=== PATIENT | female | born 1945 | race Caucasian/White ===

== ENCOUNTER 2020-09-02 09:48 | Outpatient (CLI) | payer MEDICARE, BC, SELFPAY ==
--- NOTE | ~2020-09-02 | MM_ITS ---
EXAMINATION: MM screening mary alice BI w barb HISTORY: Screening mammogram TECHNIQUE: Craniocaudal and mediolateral oblique 3-D tomosynthesis images were obtained and synthetic 2-D images were generated. CAD analysis was submitted and interpreted. COMPARISON: 09/03/2017, 05/12/2016, 05/14/2014 bilateral digital screening mammogram examinations BREAST PARENCHYMAL COMPOSITION: There are scattered areas of fibroglandular density. FINDINGS: There is no evidence of suspicious mass, calcification, or architectural distortion to sugg est malignancy in either breast. There has been no suspicious interval change. IMPRESSION: 1. No mammographic evidence of malignancy. 2. Recommend routine screening mammography in one year. BI-RADS Category 1: Negative Reviewed, dictated and finalized at location A. 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
== END 2020-09-02 09:49 | disposition home or self-care (01) ==
LOC: ANHIMG 09:54
PROVIDERS: PCP Family Medicine; Visit Provider Obstetrics & Gynecology
DX: Z12.31 Encounter for screening mammogram for malignant neoplasm of breast (principal)
CPT/HCPCS: 77063; 77067

== ENCOUNTER → 2022-11-15 10:42 | Outpatient (CLI) | payer MEDICARE, BC, SELFPAY ==
--- NOTE | ~2022-11-15 | MM_ITS ---
EXAMINATION: MM screening [facility] BI w barb HISTORY: Screening mammogram TECHNIQUE: Craniocaudal and mediolateral oblique 3-D tomosynthesis images were obtained and synthetic 2-D images were generated. CAD analysis was submitted and interpreted. COMPARISON: 09/02/2020, 09/03/2017, 05/02/2016 BREAST PARENCHYMAL COMPOSITION: There are scattered areas of fibroglandular density. FINDINGS: No suspicious mass, calcification, or architectural distortion are identified in either remigio ast to suggest malignancy. There has been no suspicious interval change. IMPRESSION: 1. No mammographic evidence of malignancy. 2. Recommend routine screening mammography in one year. BI-RADS Category 1: Negative Reviewed, dictated and finalized at location A.
== END ==
PROVIDERS: PCP Family Medicine; Visit Provider Nurse Practitioner Obstetrics & Gynecology
DX: Z12.31 Encounter for screening mammogram for malignant neoplasm of breast (principal)
CPT/HCPCS: 77063; 77067

== ENCOUNTER 2023-09-28 07:32 | Outpatient (CLI) | payer MEDICARE, BC, SELFPAY ==
[2023-09-28 09:39] LABS: Anion Gap 2 mmol/L (4-12); Blood Urea Nitrogen 16 mg/dL (7-17); Calcium 9.4 mg/dL (8.4-10.2); Carbon Dioxide 30 mmol/L (22-30); Chloride 106 mmol/L (98-107); Estimated Glomerular Filt Rate > 60; Glucose 108 mg/dL (65-110); Sodium 138 mmol/L (137-145)
[2023-10-01 16:09] LABS: Cholesterol 159 mg/dL (0-200); HDL Direct 64 mg/dL; Triglycerides 93 mg/dL (<150)
[2023-10-01 16:16] LABS: LDL Cholesterol Direct 70 mg/dL
== END 2023-09-28 07:33 | disposition home or self-care (01) ==
PROVIDERS: PCP Family Medicine; Visit Provider Nurse Practitioner Family
DX: Z13.1 Encounter for screening for diabetes mellitus (principal); Z13.220 Encounter for screening for lipoid disorders; Z13.29 Encounter for screening for other suspected endocrine disorder
CPT/HCPCS: 36415; 80048; 80061; 84443

== ENCOUNTER 2023-10-12 09:15 | Outpatient (CLI) | payer MEDICARE, BC, SELFPAY ==
--- NOTE | ~2023-10-12 | US_ITS ---
US abdomen complete EXAMINATION: US Abdomen Complete INDICATION: Abdominal pain PROCEDURE: Realtime High Resolution abdomen ultrasound. COMPARISON: No prior studies for comparison FINDINGS: Gallbladder within normal limits. No gallstones, pericholecystic fluid, gallbladder wall t hickening or biliary dilatation. Common bile duct measures 3 mm. Liver echotexture within normal limits without focal mass. Pancreas within normal limits. Pancreati c tail is obscured by bowel gas. Spleen measures 9.8 cm in length. There is a focal hyperechoic mass of the spleen measuring 1.4 cm. Renal echotexture is within normal limits bilaterally without hydrone phrosis, contour deforming mass or renal stone. Right kidney measures 8.6 cm. Left kidney measures 9. 6 cm. Visualized aspects of the aorta and IVC are within normal limits. Portal vein is patent. No sonograph ic Hernandez's sign indicated by the technologist. IMPRESSION: 1: Focal hyperechoic 1.4 cm splenic mass, most likely benign. Consider follow-up ultrasound in 6 danelle hs to assess stability.. Reviewed, dictated and finalized at location B. IMPRESSION: 1: Focal hyperechoic 1.4 cm splenic mass, most likely benign. Consider follow-u p ultrasound in 6 months to assess stability..
== END 2023-10-12 09:16 ==
LOC: MICIMG 09:16
PROVIDERS: PCP Nurse Practitioner Family; Visit Provider Nurse Practitioner Family
DX: R16.1 Splenomegaly, not elsewhere classified (principal)
CPT/HCPCS: 76700

== ENCOUNTER 2023-10-25 12:26 | Outpatient (CLI) | payer MEDICARE, BC, SELFPAY ==
--- NOTE | ~2023-10-25 | MR_ITS ---
EXAMINATION: MR abdomen wo/w con DATE: 10/25/2023 13:30 INDICATION: Splenic mass. TECHNIQUE: Magnetic resonance imaging (MRI) of the abdomen was performed without and with 12 mL Multi Delia intravenous contrast. COMPARISON: Abdomen ultrasound 10/12/2023, chest CT 08/10/11 FINDINGS: The liver, gallbladder, pancreas, and adrenal glands are normal. There are cysts in the kidneys measu ring up to 6 mm on the right. There is a 13 mm mass in the spleen with delayed hyperenhancement. Ther e are no dilated loops of bowel. IMPRESSION: 1. 13 mm splenic mass with delayed hyperenhancement, most likely a hemangioma or hamartoma. Reviewed, dictated and finalized at location E. IMPRESSION: 1. 13 mm splenic mass with delayed hyperenhancement, most likely a hemangioma o r hamartoma.
== END 2023-10-25 12:27 | disposition home or self-care (01) ==
LOC: ANHIMG 12:28
PROVIDERS: PCP Nurse Practitioner Family; Visit Provider Nurse Practitioner Family
DX: R16.1 Splenomegaly, not elsewhere classified (principal)
CPT/HCPCS: 74183; A9577

== ENCOUNTER 2024-03-07 12:07 | Outpatient (CLI) | payer MEDICARE, BC, SELFPAY ==
--- NOTE | ~2024-03-07 | MM_ITS ---
EXAMINATION: MM screening mary alice BI w barb HISTORY: Screening mammogram TECHNIQUE: Craniocaudal and mediolateral oblique 3-D tomosynthesis images were obtained and synthetic 2-D images were generated. CAD analysis was submitted and interpreted. COMPARISON: 11/15/2022, 09/02/2020, 09/03/2017 BREAST PARENCHYMAL COMPOSITION:Dense: The breasts are heterogeneously dense, which may obscure small masses. FINDINGS: No suspicious mass, calcification, or architectural distortion are identified in either remigio ast to suggest malignancy. There has been no suspicious interval change. IMPRESSION: No mammographic evidence of malignancy. Recommend routine screening mammography in one year. BI-RADS Category 1: Negative Reviewed, dictated and finalized at location .
--- NOTE | ~2024-03-07 | DEXA_ITS ---
Bone Density Report Name: KARLIE MCGILL Age: 78 Sex: Female Ethnicity: White Date of : 1945 Indication: postmenopausal; screening for osteoporosis; parental hip fracture; hysterectomy; Referring Provider: KARISHMA XIONG Study: Bone densitometry was performed. Exam Date: March 07, 2024 Accession number: [id number] Bone Density: Region BMD T-score Z-score Classification AP Spine(L1-L4) 0.876 -1.6 1.1 Osteopenia Femoral Neck (Left) 0.704 -1.3 1.0 Osteopenia Total Hip (Left) 0.844 -0.8 1.2 Normal Femoral Neck (Right) 0.704 -1.3 1.0 Osteopenia Total Hip (Right) 0.843 -0.8 1.2 Normal Total Hip Mean 0.843 -0.8 1.2 Normal World Health Organization criteria for BMD impression classify patients as: Normal (T-score at or above -1.0), Osteopenia (T-score between -1.0 and -2.5), or Osteoporosis (T-score at or below -2.5). 10-year Fracture Risk(1): Major Osteoporotic Fracture 22% Hip Fracture 11% Reported Risk Factors: [place] (), Neck BMD=0.704, BMI=24.7, parental fracture (1) FRAX(R) Version 3.08. Fracture probability calculated for an untreated patient. Fracture probability may be lower if the patient has received treatment. Clinical Information Provided by Patient: Parent has had a hip fracture Has the following medical conditions: Hysterectomy Patient maximum height was 63 Menopause Age: 45 Onset of menses at age 11 Number of children 0 Impression: The patient has low bone mass, based on the Total Spine T-score. The patient has an estimated ten-year risk of hip fracture of 11% and an estimated ten-year risk of major fracture of 22%, based on the WHO FRAX algorithm. The patient has risk factors, including: parental hip fracture. Discussion: BONE DENSITY IS LOW AT ONE OR MORE SKELETAL SITES. THE PATIENT'S BMD AND CLINICAL RISK FACTORS CONTRIBUTE TO THIS PATIENT'S HIGH RISK OF FRACTURE. This patient's lowest T-score is low at one or more skeletal sites. It meets the World Health Organization's (WHO) criteria for ?low bone mass? (T-score between -1.0 and -2.5). The patient's 10-year risk of hip fracture and 10 year risk of a major osteoporotic fracture as calculated by FRAX exceeds the threshold where pharmacological therapy is recommended by the National Osteoporosis Foundation (NOF). However, all treatment decisions require clinical judgment and consideration of individual patient factors, including patient preferences, comorbidities, previous drug use, risk factors not captured in the FRAX model (e.g., frailty, falls, vitamin D deficiency, increased bone turnover, interval significant decline in bone density) and possible under or overestimation of fracture risk by FRAX. The patient should follow a healthful lifestyle (good nutrition with adequate calcium a
== END 2024-03-07 12:08 | disposition home or self-care (01) ==
LOC: ANHIMG 12:10
PROVIDERS: PCP Nurse Practitioner Family; Visit Provider Nurse Practitioner Family
DX: Z12.31 Encounter for screening mammogram for malignant neoplasm of breast (principal); M85.89 Other specified disorders of bone density and structure, multiple sites; Z78.0 Asymptomatic menopausal state
CPT/HCPCS: 77063; 77067; 77080

== ENCOUNTER 2024-09-26 08:30 | Outpatient (CLI) | payer MEDICARE, BC, SELFPAY ==
[2024-09-26 09:13] LABS: Hematocrit 41.8 % (37.0-47.0); Hemoglobin 13.5 g/dL (12.0-15.0); Mean Corpuscular HGB Conc 32.3 g/dl (32-36); Mean Corpuscular Hemoglobin 29.6 pg (26-34); Mean Corpuscular Volume 91.7 fl (80-100); Mean Platelet Volume 10.7 fl (7.4-10.4); Platelet Count Result 225 k/mm3 (150-375); Red Blood Count 4.56 M/mm3 (4.2-5.4); Red Cell Distribution Width 13.5 % (11.5-14.5); White Blood Count 6.7 K/mm3 (4.5-10.0)
[2024-09-26 09:27] LABS: Alanine Aminotransferase 15 U/L (6-35); Albumin Level 4.2 g/dL (3.5-5.1); Alkaline Phosphatase 59 U/L (38-126); Anion Gap 6 mmol/L (4-12); Aspartate Amino Transferase 26 U/L (14-36); Bilirubin,Total 0.9 mg/dL (0.2-1.3); Blood Urea Nitrogen 17 mg/dL (7-17); Calcium 9.4 mg/dL (8.4-10.2); Carbon Dioxide 29 mmol/L (22-30); Chloride 104 mmol/L (98-107); Estimated Glomerular Filt Rate 59; Glucose 105 mg/dL (65-110); Potassium 3.9 mmol/L (3.4-5.0); Sodium 139 mmol/L (137-145)
== END 2024-09-26 08:31 | disposition home or self-care (01) ==
PROVIDERS: PCP Family Medicine; Visit Provider Nurse Practitioner Family
DX: R10.9 Unspecified abdominal pain (principal); E55.9 Vitamin D deficiency, unspecified; E50.9 Vitamin A deficiency, unspecified; Z13.220 Encounter for screening for lipoid disorders
CPT/HCPCS: 36415; 80053; 82306; 85027

== ENCOUNTER 2024-10-03 08:13 | Outpatient (CLI) | payer MEDICARE, BC, SELFPAY ==
--- NOTE | ~2024-10-03 | US_ITS ---
Abdominal Sonogram: Real-time sonographic imaging of the abdomen was performed. Clinical History: Splenomegaly COMPARISON: MR dated 10/25/2023, ultrasound dated 10/12/2023 Findings: The liver appears normal with no evidence of mass lesion or bile duct dilatation. Main por porfirio vein demonstrates normal direction of flow. The spleen is normal in size. Suggestion of a 1.4 cm minimally hyperechoic mass in the spleen. The gallbladder is well distended, and appears normal with no evidence of gallstone or wall thickening. The common bile duct measures 3 mm. The visualized awan creas, aorta, and IVC are unremarkable. The right kidney measures 8.7 cm in length and the left kidn ey measures 8.1 cm. There is no hydronephrosis or renal calculus. Impression: Stable 1.4 cm splenic mass. Reviewed, dictated and finalized at [facility]. Impression: Stable 1.4 cm splenic mass.
== END 2024-10-03 08:14 | disposition home or self-care (01) ==
LOC: MICIMG 08:13
PROVIDERS: PCP Family Medicine; Visit Provider Nurse Practitioner Family
DX: D73.9 Disease of spleen, unspecified (principal)
CPT/HCPCS: 76700

== ENCOUNTER 2024-12-25 12:41 | Outpatient (CLI) | payer MEDICARE, BC, SELFPAY ==
--- OUTSIDE RECORDS SUMMARY | 2024-12-25 12:46 | XMS_ITS | Data Portability ---
Author Organization [facility] Address [address] [place] [address] Care Team Providers Care Margin Clerk Name Role Phone KRISTY POP Primary Care Provider [phone] Assessment Encounter Date Assessment Date Assessment LastModified by Organization Details LastModified Time 07/11/2021 07/11/2021 STD testing not done per patient preference Rx:diflucan also estrace cream- discussed atrophy. suspect this is some of her sx or at least making her more likely to get yeast infections. Call office if symptoms worsening or not improving with treatment Follow up for WWE Not available 07/11/2021 13:15:20 05/23/2022 05/23/2022 CBE exam & Mammo order provided this visit. [email or web address] Not available 05/23/2022 11:03:45 Plan of Treatment Reminders Order Date Submit Date Provider Last Modified By Organization Details Last Modified Time Details Appointments MED CHECK 2024 09:15A NIKI Vila Not available Not available Not available Lab unlisted lab - women's health swab, MUKUND 2024 025 [facility] (Lab), [address], [place], [address], 09/26/2024 12:17:29 Referral None recorded. Procedures None recorded. Surgeries None recorded. Imaging None recorded. Medication Orders estradiol 0.01% (0.1 mg/gram) vaginal cream 2024 025 [facility], [address] [place], [address], 09/25/2024 15:58:36 Imvexxy Maintenan ce Pack 4 mcg vaginal insert 2021 [facility], [address] [place] [address], [id number], 09/25/2024 15:27:41 Estrace 0.01% (0.1 mg/gram) vaginal cream 2021 HARJIT [facility], [address] [place] [address], [id number], 04/14/2022 11:40:30 Diflucan 150 mg tablet 2021 [facility], [address] [place] [address], [id number], 04/14/2022 11:40:33 Patient TargetsNo targets recorded. Patient InstructionsNo instructions recorded. Reason for Referral None Reported. Results Created Date Observation Date Name Description Value Unit Range Abnormal Flag Note LastModifiedBy Organization Detail LastModifiedTime 09/26/1909/25/2024 WOMEN 'S HEALT H SWAB, MUKUND bacterial vaginosis (bv), tma Positi ve negati ve abnormal This test detec ts ribos omal RNA from bacte marti assoc iated with bacte rial vagin osis (BV), inclu ding Lacto bacil demarco (L. gasse ri, L. crisp atus and L. jense zunilda), Gardn erell a vagin belia, and Atopo bium vagin ae by Trans cript ion-M ediat ed Ampli ficat ion (TMA) . A singl e quali tativ e resul t is repor prabhu based on instr ument softw are to deter mine BV posit rachana or negat rachana statu s. Not Available [facility] (Lab) [address], [place], [address], 09/26/2024 12:17:29 09/26/1909/25/2024 WOMEN 'S HEALT H SWAB, MUKUND kurtis species, tma Positi ve negati ve abnormal Not Available [facility] (Lab) [address] [place], [address], 09/26/2024 12:17:29 09/26/19 25 09/25/2024 WOMEN 'S HEALT H SWAB, MUKUND kurtis glabrata, tma Negati ve negati ve Not Available [facility] (Lab) [address] [place], [address], 09/26/2024 12:17:29 09/26/19 25 09/25/2024 WOMEN 'S HEALT H SWAB, MUKUND trichomonas vaginalis, tma Negati ve negati ve This assay tests for and diffe renti ates minnawe en Lorelei da glabr patricia, the Lorelei da speci es group (C. albic ans, C. tropi calis , C. parap demetrius is, C. dubli niens is), and Trich omona s vagin belia by Trans cript ion-M ediat ed Ampli ficat ion (TMA) . Not Available [facility] (Lab) [address], [place], [address], 09/26/2024 12:17:29 Result Notes None recorded. Problems Name Problem SNOMED Code Status Onset Date Resolution Date Notes Provider Name and Address Organization Details Recorded Time Speciali zed medical examinat ion Completed 201307/11/2021 Gynecolo gical Examinat ion;Chaz rded Elsewher e: No Locat ion: [facility] S ource: [employer] Distributor semaj: N Practi ce ID: [id number] Jordan lable Time: 10:00:00 AM Florecita Fan MD [address], [place], [address], [place] [facility] 2 09:39:44 Screenin g for malignan t neoplasm of rectum Completed 201107/11/2021 Screenin g for malignan t neoplasm s of the rectum;R ecorded Elsewher e: No Locat ion: [facility] S ource: [employer] Distributor semaj: N Practi ce ID: [id number] Jordan lable Time: 01:30:00 PM Florecita Fan MD [address], [place], [address], [facility] [address] 09:39:[address] Concept Completed 201507/11/2021 Encntr for general adult medical exam w/o abnormal findings ;Recorde d Elsewher e: No Locat ion: Angie bland [facility] S ource: [employer] Distributor semaj: N Ninati ce ID: [id number] Jordan lable Time: 09:30:00 AM Florecita Fan MD [address], [place], [address], [facility] 2 09:39:39 Screenin g for malignan t neoplasm of cervix Completed 201107/11/2021 Screenin g for malignan t neoplasm s of the cervix;R ecorded Elsewher e: No Locat ion: Angie bland [facility] S ource: [employer] Distributor semaj: N Mauro ce ID: [id number] Jordan lable Time: 01:30:00 PM Florecita Fan MD [address], [place], [address], [facility] 2 09:39:34 Acute vaginiti s 83895166 Completed 201907/11/2021 Acute vaginiti s;Record ed Elsewher e: No Locat ion: Angie bland [facility] S ource: [employer] semaj: N Mauro ce ID: [id number] Jordan lable Time: 10:00:00 AM Florecita Fan MD [address], [place], [address], [facility] 2 09:39:13 Leukocyt osis [id number] Completed 201307/11/2021 LEUKOCYT OSIS NOS;Chaz rded Elsewher e: No Locat ion: Angie bland [facility] S ource: [employer] semaj: N Ninati ce ID: [id number] Jordan lable Time: 10:00:[address] AM MD [address], [place], [address], [facility] 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 2 09:39:31 Disorder of pelvic region of trunk Completed 201607/11/2021 Cystocel e;Record ed Elsewher e: No Locat ion: [facility] S ource: [employer]ributor semaj: N Ninati ce ID: [id number] Jordan lable Time: 11:00:00 AM MD [address], [place], [address], [facility] [address] 09:39:[address] Concept Completed 201507/11/2021 Well woman check w/o abnormal finding; Recorded Elsewher e: No Locat ion: [facility] S ource: [employer] Distributor semaj: N Ninati ce ID: [id number] Jordan lable Time: 09:30:00 AM Florecita Fan MD [address], [place], [address], [facility] 2 09:39:41 Adult health examinat ion Completed 201307/11/2021 ROUTINE MEDICAL EXAM;Rec orded Elsewher e: No Locat ion: [facility] S ource: [employer] semaj: N Ninati ce ID: [id number] Jordan lable Time: 10:00:00 AM MD [address], [place], [address], [facility] 2 09:39:16 Microsco pic hematuri a [id number] Completed 201107/11/2021 MICROSCO PIC HEMATURI A;Record ed Elsewher e: No Locat ion: Swathijace baldo [facility] S ource: [employer] Distributor semaj: N Practi ce ID: [id number] Jordan lable Time: 01:30:00 PM Florecita Fan MD [address], [place], [address], [facility] 2 09:39:22 Problem Notes None recorded. Procedures Surgical History Date Name Laterality Status Provider Name and Address Organization Details Recorded Time 02/24/20 24 Date of Last Mammogram completed Bita Coffey [facility] 09/25/2024 15:29:43 04/27/20 16 Date of Last Pap Smear completed [facility] 07/11/2021 09:17:25 06/25/19 12 total knee replacement completed [facility] 07/11/2021 09:19:08 06/25/19 07 total knee replacement completed [facility] 07/11/2021 09:18:52 06/25/19 06 colonoscopy completed [facility] 07/11/2021 09:18:33 Total Hysterectomy completed [facility] 07/11/2021 09:35:52 oophorectomy completed NIKI Mcallister [address], [place], [address], [facility] 09/26/2024 09:33:32 Imaging Results None recorded. Procedure Notes None recorded. Medical Equipment None Reported. Allergies No known drug allergies Medications Name Sig Start Date Stop Date Status Note LastModified by Organization Details LastModified Time amoxicill in 500 mg capsule 04/14 completed Not Available Not Available Not Available latanopro st 0.005 % eye drops active Not Available Not Available Not Available fluconazo le 150 mg tablet Take 1 tablet by oral route. 2024 active Not Available Not Available Not Avai lable metronida zole 0.75 % (37.5 mg/5 gram) vaginal gel insert 1 applicat orful by vaginal route every day at bedtime for 5 nights 2024 active Not Available Not Available Not Avai lable brimonidi ne 0.2 % eye drops active Not Available Not Available No t Available Glucosami ne 500 mg tablet 04/16 completed Prescrib ed Elsewher e: Yes Loca tion: Angie bland [facility] odify By: cezar solis DateTime : 04/12/20 12 12:55:04 PM Not Available Not Available Not Available dorzolami de 22.3 mg-timolo l 6.8 mg/mL eye drops 05/23 completed Not Available Not Available Not Available estradiol 0.01% (0.1 mg/gram) vaginal cream Apply 1g vaginall y at bedtime twice per week 2024 active Not Available Not Available Not Avai lable Premarin 0.625 mg/gram vaginal cream insert by vaginal route every day cyclical ly, 3 weeks on and 1 week off 04/16 completed Prescrib ed Elsewher e: Yes Loca tion: Angie bland [facility] odify By: cezar solis DateTime : 04/12/20 12 12:55:04 PM Not Available Not Available Not Available Calcio Lb 500 mg tablet 04/16 completed Prescrib ed Elsewher e: Yes Loca tion: Angie bland [facility] odify By: cezar solis DateTime : 04/12/20 12 12:55:04 PM Not Available Not Available Not Available Eye Drops (with povidone) 0.05 %-0.1 %-1 %-1 % 05/23 completed Prescrib ed Elsewher e: Yes Loca tion: Angie [facility] odify By: cezar solis DateTime : 04/12/20 12 12:55:04 PM Not Available Not Available Not Available Imvexxy Maintenan ce Pack 4 mcg vaginal insert Use one imvexxy supposit ory topicall y around introitu s/inner vulva bilatera lly twice a week until return to office in 4wks. 09/25 completed Lot#: [id number] , Exp -2 3 Not Available Not Available Not Available Vitals Date Recorded Body height Body mass index (BMI) Body weight Systolic And Diastolic Provider Name and Address Organization Details Last Updated DateTime 07/11/2021 160.02 cm 26.9 kg/m2 27604.04 g 115/74 mm[Hg] Latrice Scott [facility] 07/11/2021 09:35:32 Date Recorded Body height Body mass index (BMI) Body weight Systolic And Diastolic Provider Name and Address Organization Details Last Updated DateTime 09/25/2024 160.02 cm 24.8 kg/m2 72889.93 g 149/82 mm[Hg] Bita Coffey [facility] 09/25/2024 15:27:23 Date Recorded Body height Systolic And Diastolic Provider Name and Address Organization Details Last Updated DateTime 04/14/2022 160.02 cm 120/80 mm[Hg] Alicia Rivera MARIA INES- [address], [place], [address], [facility] 04/14/2022 11:32:59 Date Recorded Body height Body mass index (BMI) Body weight Systolic And Diastolic Provider Name and Address Organization Details Last Updated DateTime 05/23/2022 160.02 cm 24.4 kg/m2 51006.75 g 110/76 mm[Hg] Ashley Melgar [facility] 05/23/2022 10:48:06 Social History Question Answer Notes LastModified by Organizat ion Details LastModified Time Tobacco Smoking Status Never Smoker Ashley Melgar [facility] 05/23/2022 10:48:13 Are You Blind Or Do You Have Difficulty Seeing? No Information not available 04/14/2022 What Is Your Level Of Caffeine Consumption? None Information not available 05/23/2022 Have You Been To An Area Known To Be High Risk For COVID-19? No Information not available 04/14/2022 Are You Deaf Or Do You Have Serious Difficulty Hearing? No Information not available 04/14/2022 What Type Of Diet Are You Following? REGULAR Information not available 04/14/2022 Do You Have Smoke And Carbon Monoxide Detectors In Your Home? Yes Information not available 04/14/2022 Do You Use Sunscreen Routinely? Yes Information not available 04/14/2022 Has Tobacco Cessation Counseling Been Provided? No Information not available 05/23/2022 Do You Have Difficulty Walking Or Climbing Stairs? No Information not available 05/23/2022 Sex: Unknown Functional Status Question Answer Note LastModified by MysteryDat ion Details LastModified Time Do you use any illicit or recreational drugs? No smcaley Information not available 07/11/2021 Do you or have you ever used any other forms of tobacco or nicotine? No Information not available 05/23/2022 What is your level of alcohol consumption? None Information not available 05/23/2022 Are you able to walk? YESWOREST Information not available 04/14/2022 Are you able to care for yourself? Yes Information n ot available 05/23/2022 Do you have difficulty dressing or bathing? No Information not available 05/23/2022 What is your exercise level? Occasional Information not available 04/14/2022 Mental Status None recorded. Family History Relationship Description Onset Age of this Age Resolved Age Notes LastModified by Organization Details LastModified Time Mother Heart disease Not available 2021 11:42:12 Father Malignant neoplastic disease Not available 2021 11:42:20 Medical History Condition Response Allergies (Food, seasonal, environmental ) N Other Y Breast Cancer N Drug/Latex Allergies/Reactions N Blood Transfusion N Dermatologic Disorders N Lung Disease N Defects or Inherited Disease N Breast Problem N Gestational Diabetes N Hematologic disorders N Anesthesia Complications N History of STI N Deep Vein Thrombosis Y Polycystic ovary syndrome N Anxiety Disorder N Autoimmune disease N Arthritis N Infertility N Polyps N Acid Reflux (GERD) N History of abnormal pap N Cancer N Stroke N Varicosities N Neurologic/Epilepsy N Endometriosis N High Cholesterol N Headaches N Fibromyalgia N Kidney Disease N Heart Problems N Kidney or Bladder Problems N Thyroid Problems N GI Problems N Eating Disorder N Anemia N Art (IVF or FET) N Psychiatric Illness N Ovarian Cancer N Diabetes N Pulmonary (TB, Asthma) N Hepatitis/Liver Disease N No Past Medical History N Eczema N Urinary Tract Infection N Abuse/Domestic Violence N Asthma N Trauma/Violence N Depression/ depression N Heart Disease N Pre-Eclampsia N Hypertension N Osteoporosis N Thrombophilias N Gynecological History Statement/Question Response Abnormal Pap N Date of Last Mammogram 02/24/2024 STIs/STDs N HPV Vaccine N Current Control Method Hysterectom y Date of Last Colonoscopy Sexually Active? N Menses Monthly N Date of DEXA bone scan Date of Last Pap Smear 04/27/2016 Sexual Problems? N LMP Unknown Obstetrics History GPAL:G 1 P 0 0 0 1 Type Value Living 1 Total 1 Past Encounters Encounter ID Performer Location Encounter Start Date Encounter Closed Date Diagnosis/Indication Diagnosis SNOMED-CT Code Diagnosis ICD10 Code Diagnosis Note [id number] Florecita Fan MD [facility] [address] [address] 07/11/2021 09:27:16 07/11/2021 13:34:33 Candidiasis of vulva 9513226 B37.3 Atrophic vaginitis 54849 000 N95.2 [id number] Alicia Rivera [facility] [address],[place] [address] 04/14/2022 11:08:43 04/14/2022 13:13:30 Vulval irritation 045954278 N90.89 Questionab le vulvar atrophy vs Lichen planus.Tod ay we discussed VCG's with daily crisco BID plus Imvexxy topical x 4wks.Will determine this next visit if vulvar bx is necessary as we cannot r/o vulvar lichen planus or other pathologyi ncluding vulvar irritation arising from removal/re insertion of pessary. Will work on removing contact dermatitis irritants & re-evaluat e progress at f/u. Time spent in visit is a total of 15 mins with at least 50% of visit consisting of counseling and review of plan of care. [id number] [facility] [address] [address] 05/23/2022 10:34:31 05/23/2022 11:29:26 Vulval irritation 775194540 N90.89 N90.5 Exam much improvedWe decided to do four additional weeks of topical imvexxy as previously instructed along with daily Crisco use which she will continue after imvexxy has been completed then f/u PRN. Imvexxy samples x 4 provided (Lot#: [id number], Exp 04/24/2023 Time spent in visit is a total of 15 mins with at least 50% of visit consisting of counseling and review of plan of care. [id number] NIKI Mcallister [facility] [address],[facility] [address] 09/25/2024 15:04:19 09/26/2024 10:32:49 Vaginal dryness 81348448 N89.8 doing well with pessary use for management of cystoceled iscussed management options for vaginal drynesswil l restart vaginal estradiol cream, rx sent - r/b/a reviewedve g based moisturize r routine discussedq uestions answeredRT C for f/u in 4 months BP precaution s discussed, encouraged PCP f/u Time spent in visit is a total of 25 mins with at least 50% of visit consisting of counseling and review of plan of care. Cystocele 336316365 N81. 10 Health Concerns Section Related Observation LastModified by Organization Detai ls LastModified Time None Recorded Concern Status LastModified by Organization Details LastModified Time None Recorded Advance Directives Directive None Recorded Payers Insurance Date Sequence Insurance Name Policy Number Policy Gatica Covered Member ID Gatica Member ID Guarantor Name 09/25/2024 1 [place] Wilma Haji [id number] Wilma Haji 09/25/2024 1 [place] Wilma Haji [id number] Wilma Haji 09/25/2024 2 [place] [id number] Wilma Haji [id number] Wilma Raissa Notes Date Note Type Note Provider Name and Address Organization Details Recorded Time 07/11/2021 text/html Pt is a 75yo G1P 1001 here complaining of symptoms of a vaginal infection. Symptoms include itching for 6 weeks since took antibiotic for dental procedure. tried monistat 3 and is somewhat improved. Denies fever, bleeding, urinary sx. hysterectomy and pessary in. Additional concerns: sexually active:n contraception:menopau se Last annual exam:2015? Florecita Fan MD [address], [place], [address], [facility] 07/11/2021 13:15:33 04/14/2022 text/html Here today to f/ u on vulvar irritation/burning/dr mei dunn.Was unable to use to the topical estrace cream due to insurance coverage.Her spouse recently due to illness.Still having same issues. NIKI Swift- [address], [place], [address], [facility] 04/14/2022 12:39:59 05/23/2022 text/html Here today for f /u to vulvar irritation/medication check. NIKI Swift- [address], [place], [address], [facility] 05/23/2022 11:08:18 09/25/2024 text/html 78yopresents wit h c/o vaginal drynessh/o TLH, BSO for non-cancerous indicationshas pessary in for cystocele, takes in and out on her ownvaginal dryness for the past few years, was previously using vaginal estrogen/imvexxy which helped.Not SA neg discharge, odors, itchingmammogram UTD per pt NIKI Mcallister [address], [place], [address], [facility] 09/26/2024 09:37:49 OBGyn Episode Ob Episode Information Episode Created Date Number of Fetuses Patient Bloodtype Patient rh Status Prepregnancy Weight lbs Domestic Partner Domestic Partner Phone Father Name Water Quality Technician Status 07/11/19 22 1 CLOSED Fetus Data First Name Last Name Admitted to NICU Weight (g) Sex Living Outcome Pediatric Complications Fetus ID Race Codes Race Delivery Type M [id number] Emanuel Calculation Initial Emanuel Date Initial Exam Date Initial Exam Provider Initial Ultrasound Date Last Menstrual Period Date Ultra Sound Weeks Gestation 0 Eighteen To Twenty Week Emanuel Update Ultra Sound Date Fundal Height At Umbil Quickening Date Ultra Sound Latest Weeks Gestation Final Emanuel Confirmed By Final Emanuel Confirmed Date Final Emanuel Date Ultra Sound Latest Days Gestation 0 0 Menstrual History Last Menstrual Date Menses Monthly On Bcp Conception Prior Menses Frequency Hcg Plus Date Menarche Onset Age Delivery Information Delivery Date Delivery Type Labor Anesthesia Weeks Gestation Incision Type Labor Labor Length Hrs Delivered By Post Complications Tubal Sterilization Discharge Date Comments 8 Discharge Information Feeding Method Contraceptive Method Maternal HG B and HCT Levels
== END 2024-12-25 12:42 | disposition home or self-care (01) ==
PROVIDERS: PCP Family Medicine; Visit Provider Nurse Practitioner Family
DX: E55.9 Vitamin D deficiency, unspecified (principal)
CPT/HCPCS: 36415; 82306

== ENCOUNTER 2025-01-22 18:46 | Inpatient (IN) | payer MEDICARE, BC, SELFPAY ==
[2025-01-22] VITALS (10 sets, daily range): BP systolic 110–139; BP diastolic 69–97; PULSE 59–66; RESP 15–23; TEMP 36.8; O2SAT 96–100; BMI 24.8
--- NOTE | ~2025-01-22 | XR_ITS ---
CHEST RADIOGRAPH CLINICAL HISTORY: PICC placement . COMPARISON: 01/22/2025 TECHNIQUE: Single portable view of the chest. FINDINGS Interval placement of a left upper extremity PICC line with its tip projecting over the cavoatrial ju nction. The remainder of the cardiomediastinal silhouette is otherwise unremarkable. The lungs are clear. IMPRESSION: No focal infiltrate or effusion. Left upper extremity PICC line in good position and ready for immediate use. Reviewed, dictated and finalized at location A.
--- NOTE | ~2025-01-22 | XR_ITS ---
CHEST RADIOGRAPH CLINICAL HISTORY: CP . COMPARISON: 06/29/2019 TECHNIQUE: Single portable view of the chest. FINDINGS The cardiomediastinal silhouette is unremarkable. Increased interstitial markings are identified bilaterally, findings suggesting mild pulmonary vascul ar congestion. The remainder of the lungs are otherwise clear. Significant gaseous distention of the stomach IMPRESSION: Mild pulmonary vascular congestion, without focal infiltrate or effusion. Reviewed, dictated and finalized at location A.
--- NOTE | 2025-01-22 18:51 | ECG_ITS ---
Test Date: 2025-01-22 18:45:33 Measurements Intervals [place] Rate: 63 P: 73 DE: 178 QRS: 42 QRSD: 101 T: 67 QT: 399 QTc: 411 Interpretive Statements SINUS RHYTHM POSSIBLE RIGHT VENTRICULAR CONDUCTION DELAY ST ELEVATION IN DIFFUSE LEADS- PROBABLY EARLY REPOLARIZATION BORDERLINE ECG No previous ECG available for comparison Electronically Signed On 01-23-2025 06:39:44 CDT by Mahesh Cochran D.O.
[2025-01-22 18:59] LABS: Hematocrit 39.1 % (37.0-47.0); Hemoglobin 12.7 g/dL (12.0-15.0); Immature Granulocyte Percent A 0.4 % (0-0.5); Lymphocytes Absolute Auto 3.73 K/mm3 (0.9-3.2); Mean Corpuscular HGB Conc 32.5 g/dl (32-36); Mean Corpuscular Hemoglobin 29.2 pg (26-34); Mean Corpuscular Volume 89.9 fl (80-100); Nucleated Red Blood Cells Absolute Auto 0.000 K/mm3 (0.0-0.012); Nucleated Red Blood Cells Perc 0.0 % (0.0-0.2); Platelet Count Result 258 k/mm3 (150-375); Red Blood Count 4.35 M/mm3 (4.2-5.4); White Blood Count 8.4 K/mm3 (4.5-10.0)
[2025-01-22 19:11] LABS: INR 1.0; Prothrombin Time 13.7 Seconds (11.1-14.7)
[2025-01-22 19:12] LABS: Partial Thromboplastin Time 26.9 Seconds (22.3-36.8)
--- NOTE | 2025-01-22 19:22 | PM.CNCAR ---
Assessment and Plan Assessment and plan (1) Chest pain: Code(s): R07.9 - Chest pain, unspecified Status: Acute Plan Chest pain with exertion Plan: Trend troponin TTE in am Aspirin 324mg po once, then 81 mg p.o. daily Atorvastatin 40 mg daily Check FLP Heparin drip Keep NPO at midnight for catheterization in the a.m. Risks and benefits discussed wih patient and she is willing to proceed History of Present Illness History of Present Illness Consult date/time: 01/22/25 19:22 Reason For Visit: CP, EKG concerning Narrative: 79-year-old female with no significant past medical history presents with chief complaints of chest pain. Patient was working in her garden this evening when she noticed pressure-like chest pain in the central chest of intensity 8-9/10 without any radiation or associated symptoms. There were no aggravating or relieving factors. She went inside and called EMS when the pain did not resolve. She states that she was given aspirin and 2 sublingual nitro which decreased her pain. Right now her pain is of intensity 3-4/10. She has not had similar pain in the past. No family history of premature CAD. She does currently smoke. She states that she had a cardiac catheterization 1999 for chest pain at which time she was told is no obstructive CAD. No shortness of breath, dizziness, palpitations, lightheadedness, presyncope, syncope, recent weight gain, leg swelling, orthopnea PND. EKG shows sinus rhythm, 1mm concave ST elevation in single lead I, T-wave inversion in lead aVL, no reciprocal ST depressions, early repolarization changes in anterior leads. Review of Systems Review of Systems: Complete review of systems was performed and negative other than those mentioned in the HPI. [facility] Past Medical History Medical History Facial pressure Knee pain Cerumen impaction Otitis externa Surgical History Surgical History History of knee replacement (L) 2006 & (R)2011 Dr. Baird Family History Family History Father Family history of lymphoma Mother Family history of coronary artery disease Social History Social History (Reviewed 04/03/25 @ 07:48 by Ivy Valentine Smoking status: Never smoker Second hand tobacco smoke exposure: Yes Alcohol intake: never Substance use: never Substance use type: does not use Do You Feel Safe in your Home?: Yes Lack of Transportation: No Lack of Food: Never True Current Housing: I Have Housing Concerned About Future Housing: No Difficulty Paying Gas/Electric Bills: No Difficulty Paying for Meds: No Currently Unemployed: No Education: Associate Degree Difficulty w/ Childcare or Family Care: No Gender identity (if verbalized by the patient): Female Spiritual care concerns: No (mandaen) Meds Home Medications and Allergies Home Medications ?Medication ?Instructions ?Recorded ?Confirmed ?Type latanoprost 0.005 % eye drops 1 drp EACH EYE HS 06/29/19 01/22/25 History brimonidine 0.2 % eye drops 1 drp EACH EYE Q12H 11/06/22 01/22/25 History dorzolamide 22.3 mg-timolol 6.8 1 drp ophthalmic (eye) ONCE 11/06/22 01/22/25 History mg/mL eye drops cholecalciferol (vitamin D3) 50 2,000 unit PO DAILY 01/22/25 01/22/25 History mcg (2,000 unit) capsule Allergies Allergy/AdvReac Type Severity Reaction Status Date / Time hydrocodone Allergy Mild Unknown Verified 01/22/25 20:33 propoxyphene Allergy Unknown Hives Verified 01/22/25 20:33 Vital Signs Vital Signs - 24 hr 01/22/25 18:42 01/22/25 18:50 01/22/25 18:50 Pulse Rate 63 65 Respiratory Rate 19 15 Blood Pressure 124/75 124/75 Pulse Oximetry 97 100 100 Oxygen Delivery Room Air Room Air 01/22/25 18:58 Pulse Rate 60 Respiratory Rate Blood Pressure Pulse Oximetry Oxygen Delivery Exam Narrative: General: Alert oriented x3, no acute distress Neck: Supple, no JVD Chest: Bilaterally clear to auscultation, no rales or rhonchi Cardiac: S1, S2 +, regular rate, regular rhythm, no murmurs or rubs Extremities: No lower extremity edema, no skin rash Neurologic: Alert and oriented x3, no focal neurological deficits Results Labs and Meds 01/23/25 03:59 01/23/25 03:59 Lab results: Coagulation 01/22/25 Range/Units 18:53 PT 13.7 (11.1-14.7) Seconds APTT 26.9 (22.3-36.8) Seconds CBC 01/22/25 Range/Units 18:53 WBC 8.4 (4.5-10.0) K/mm3 RBC 4.35 (4.2-5.4) M/mm3 Hgb 12.7 (12.0-15.0) g/dL Hct 39.1 (37.0-47.0) % Plt Count 258 (150-375) k/mm3 Lymph # (Auto) 3.73 H (0.9-3.2) K/mm3 [place] # (Auto) 0.9 H (0.1-0.6) K/mm3 Eos # (Auto) 0.0 (0-0.3) K/mm3 Baso # (Auto) 0.0 (0.0-0.1) K/mm3 Patient Weight 01/22/25 23:59 Weight 66 kg
[2025-01-22 19:24] LABS: Alanine Aminotransferase 15 U/L (6-35); Albumin Level 4.0 g/dL (3.5-5.1); Alkaline Phosphatase 52 U/L (38-126); Anion Gap 6 mmol/L (4-12); Aspartate Amino Transferase 31 U/L (14-36); Bilirubin,Total 0.4 mg/dL (0.2-1.3); Blood Urea Nitrogen 19 mg/dL (7-17); Calcium 9.3 mg/dL (8.4-10.2); Carbon Dioxide 27 mmol/L (22-30); Chloride 102 mmol/L (98-107); Cholesterol 166 mg/dL (0-200); Estimated CRCL calculation 31 ml/min; Estimated Glomerular Filt Rate 50; Glucose 114 mg/dL (65-110); HDL Direct 60 mg/dL; Potassium 3.4 mmol/L (3.4-5.0); Sodium 135 mmol/L (137-145); Total Protein 8.1 g/dL (6.3-8.2); Triglycerides 270 mg/dL (<150)
[2025-01-22] MEDS: HEPARIN SOD/D5W 100 UNITS/ML 25,000 UNITS/250 ML BAG 7 UNITS IV CONT (19:32)
--- NOTE | 2025-01-22 19:33 | ECG_ITS ---
Test Date: 2025-01-22 19:50:18 Measurements Intervals [place] Rate: 60 P: 15 AL: 142 QRS: 22 QRSD: 96 T: 67 QT: 417 QTc: 418 Interpretive Statements SINUS RHYTHM LOW QRS VOLTAGE IN PRECORDIAL LEADS BASELINE ARTIFACT- I, II, AVR, AVL, AVF BORDERLINE ECG Compared to ECG 01/22/2025 18:45:33 Low QRS voltage now present Electronically Signed On 01-23-2025 06:40:16 CDT by Mahesh Cochran D.O.
[2025-01-22 19:39] LABS: Troponin I 0.022 ng/mL (0.000-0.034)
--- NOTE | 2025-01-22 20:18 | PM.IMHP ---
H&P: HPI History of Present Illness Date/Time: 01/22/25 20:18 Chief Complaint: Chest pain Narrative: 79-year-old female with history of glaucoma who presents to [facility] ER via EMS for chest pain. She was gardening today when she had the sudden onset of midsternal chest pressure which was 8/10. She had slight dizziness but no other associated symptoms. When EMS arrived she was given aspirin and 2 sublingual nitro which improved her pain to a 4/10. In [place] ER 1st troponin negative. EKG demonstrating sinus rhythm, T-wave inversion in aVL. Of note, patient had chest pain which was not similar years back in a different state, ended up having a catheterization which was reported normal. Her pain is improved 3/10. Patient evaluated by office services coordinator in the ER. Recommend NPO and heparin GTT. Review of Systems Review of Systems: All systems reviewed & are unremarkable except as noted in HPI and below (HPI) [facility] Past Medical History Medical History Facial pressure Knee pain Cerumen impaction Otitis externa Surgical History Surgical History History of knee replacement (L) 2006 & (R)2011 Dr. Baird Family History Family History Father Family history of lymphoma Mother Family history of coronary artery disease Social History Social History Smoking status: Never smoker Alcohol intake: never Substance use: never Do You Feel Safe in your Home?: Yes Lack of Food: Never True Current Housing: I Do Not Have Housing Concerned About Future Housing: No Difficulty Paying Gas/Electric Bills: No Difficulty Paying for Meds: No Currently Unemployed: No Education: Decline to Answer Difficulty w/ Childcare or Family Care: No Gender identity (if verbalized by the patient): Female Meds Home Medications and Allergies Home Medications ?Medication ?Instructions ?Recorded ?Confirmed ?Type latanoprost 0.005 % eye drops 1 drp DAILY 06/29/19 09/25/24 History brimonidine 0.2 % eye drops 1 drp ophthalmic (eye) Q8H 11/06/22 09/25/24 History dorzolamide 22.3 mg-timolol 6.8 1 drp ophthalmic (eye) ONCE 11/06/22 09/25/24 History mg/mL eye drops cholecalciferol (vitamin D3) 1,250 1,250 mcg PO WEEKLY #8 caps 09/29/24 Rx mcg (50,000 unit) capsule Allergies Allergy/AdvReac Type Severity Reaction Status Date / Time hydrocodone Allergy Mild Unknown Verified 09/25/24 07:48 propoxyphene Allergy Unknown Hives Verified 09/25/24 07:48 Vital Signs Vital Signs - 24 hr 01/22/25 18:42 01/22/25 18:50 01/22/25 18:50 Pulse Rate 63 65 Respiratory Rate 19 15 Blood Pressure 124/75 124/75 Pulse Oximetry 97 100 100 Oxygen Delivery Room Air Room Air 01/22/25 18:58 01/22/25 19:00 01/22/25 19:15 Pulse Rate 60 62 61 Respiratory Rate 21 H 17 Blood Pressure 116/97 H 139/86 Pulse Oximetry 99 98 Oxygen Delivery 01/22/25 19:31 01/22/25 19:45 Pulse Rate 66 59 L Respiratory Rate 23 H 20 Blood Pressure 132/80 118/69 Pulse Oximetry 99 96 Oxygen Delivery Exam Const: General: comfortable and no acute distress HENMT: Mouth: Yes moist mucous membranes Eyes: Pupils: Equal, round and reactive pupils present Neck: Neck: supple Resp: Effort & Inspection: normal respiratory effort Auscultation: clear to auscultation bilaterally Cardio: Rate: regular rate Rhythm: regular rhythm Heart sounds: no gallops, no murmurs and no rubs GI: GI Palp: Yes Soft to palpation and No Tenderness to palpation present (GI) : General: Yes bladder normal to palpation Neuro: Motor exam (neuro): 5/5 motor strength present throughout Extrem: General: no edema H&P: Results Labs Labs: Short CBC 01/22/25 Range/Units 18:53 WBC 8.4 (4.5-10.0) K/mm3 Hgb 12.7 (12.0-15.0) g/dL Hct 39.1 (37.0-47.0) % Plt Count 258 (150-375) k/mm3 [facility] 01/22/25 18:53 Sodium 135 L Potassium 3.4 Chloride 102 Carbon Dioxide 27 BUN 19 H Creatinine 1.05 H Glucose 114 H Calcium 9.3 Cardiac Enzymes 01/22/25 Range/Units 18:53 Troponin I 0.022 (0.000-0.034) ng/mL Liver Function 01/22/25 Range/Units 18:53 Total Bilirubin 0.4 (0.2-1.3) mg/dL AST 31 (14-36) U/L ALT 15 (6-35) U/L Alkaline Phosphatase 52 (38-126) U/L Albumin 4.0 (3.5-5.1) g/dL Assessment and Plan Assessment and plan (1) Chest pain: Code(s): R07.9 - Chest pain, unspecified Status: Acute Plan 79-year-old female with history of glaucoma who presents to [facility] ER via EMS for chest pain. She was gardening today when she had the sudden onset of midsternal chest pressure which was 8/10. She had slight dizziness but no other associated symptoms. When EMS arrived she was given aspirin and 2 sublingual nitro which improved her pain to a 4/10. In [place] ER 1st troponin negative. EKG demonstrating sinus rhythm, T-wave inversion in aVL. Of note, patient had chest pain which was not similar years back in a different state, ended up having a catheterization which was reported normal. Her pain is improved 3/10. Patient evaluated by office services coordinator in the ER. Recommend NPO and heparin GTT. ----- Patient resting comfortably. NPO midnight. Heparin GTT. Morphine p.r.n.. Patient reports no allergy on the hydrocodone. Full code. Hospitalist [facility] Advance Care Plan I have confirmed that the patient's Advanced Care Plan is present, code status is documented, or surrogate decision maker is listed in patient medical record.: Yes Medication Reconciliation I have utilized all available resources to obtain, update and review the patients current medications (includes all prescriptions, OTC, herbals, cannabis, and nutritional supplements).: Yes
--- NOTE | 2025-01-22 22:02 | ADMGEN ---
This patient, Wilma Haji, was admitted to IMU Room 206-02. Patient/family oriented to hospital policies and general routines including ID bracelet, bed and alarms, visiting hours, pain management, procedures, bathroom and other care routines, personal items, smoking policy, room service/diet, and visiting hours. Information on how to activate the Rapid Response Team has been discussed. Patient/Family are encouraged to report perceived risks to care and to ask questions if they do not understand what they are told or what they should do.
--- NOTE | 2025-01-22 22:09 | ED_ITS ---
HPI - Chest Pain General Chief Complaint: Chest Pain Stated Complaint: CP after yardwork Time Seen by Provider: 01/22/25 18:47 History of Present Illness HPI narrative: Patient doing yd work and weeding outside today when she suddenly started having chest pressure and felt really warm, with shortness of breath, went into the house, called EMS, she was given nitro and aspirin and on arrival here, her symptoms have largely resolved, she now just has some slight pressure. No radiation of the pain, and no focal numbness or weakness Related Data Home Medications ?Medication ?Instructions ?Recorded ?Confirmed ?Last Taken ?Type latanoprost 0.005 % eye drops 1 drp EACH EYE HS 06/29/19 01/22/25 01/21/25 History brimonidine 0.2 % eye drops 1 drp EACH EYE Q12H 11/06/22 01/22/25 01/22/25 History dorzolamide 22.3 mg-timolol 6.8 1 drp ophthalmic (eye) ONCE 11/06/22 01/22/25 01/22/25 History mg/mL eye drops cholecalciferol (vitamin D3) 50 2,000 unit PO DAILY 01/22/25 01/22/25 01/22/25 History mcg (2,000 unit) capsule Allergies Allergy/AdvReac Type Severity Reaction Status Date / Time hydrocodone Allergy Mild Unknown Verified 01/22/25 20:33 propoxyphene Allergy Unknown Hives Verified 01/22/25 20:33 Review of Systems 2 Review of Systems: All systems reviewed & are unremarkable except as noted in HPI and below PMFSH Past Medical History Medical History Facial pressure Knee pain Cerumen impaction Otitis externa Surgical History Surgical History History of knee replacement (L) 2006 & (R)2011 Dr. Baird Family History Family History Father Family history of lymphoma Mother Family history of coronary artery disease Social History Social History Smoking status: Never smoker Second hand tobacco smoke exposure: Yes Alcohol intake: never Substance use: never Substance use type: does not use Do You Feel Safe in your Home?: Yes Lack of Transportation: No Lack of Food: Never True Current Housing: I Have Housing Concerned About Future Housing: No Difficulty Paying Gas/Electric Bills: No Difficulty Paying for Meds: No Currently Unemployed: No Education: Associate Degree Difficulty w/ Childcare or Family Care: No Gender identity (if verbalized by the patient): Female Spiritual care concerns: No (sikh) Exam 2 Narrative: EXAMINATION OF ORGAN SYSTEMS/BODY AREAS: Constitutional: Vital signs per nursing GENERAL:[No acute distress, non-toxic appearing.] HEAD: Normal with no signs of head trauma. EYES: EOMI, conjunctiva normal ENT: Hearing grossly intact LUNGS: Nonlabored breathing. HEART: [Regular rate and rhythm], normal radial DP pulses bilaterally ABD: [Soft], [nontender to palpation] EXT: Normal range of motion SKIN: [No rashes or lesions.] NEURO: [Alert and oriented x 3. No gross focal sensory or strength deficits.] PSYCH: Normal affect Course Vital Signs Vital signs: Vital Signs Pulse Rate 63 01/22/25 18:42 Respiratory Rate 19 01/22/25 18:42 Blood Pressure 124/75 01/22/25 18:42 Pulse Oximetry 97 01/22/25 18:42 Oxygen Delivery Room Air 01/22/25 18:42 Temperature 98.3 F 01/22/25 21:55 Pulse Rate 66 01/22/25 21:55 Respiratory Rate 22 H 01/22/25 21:55 Blood Pressure 110/84 01/22/25 21:55 Pulse Oximetry 96 01/22/25 21:55 Oxygen Delivery Room Air 01/22/25 18:50 MDM - Chest Pain MDM Narrative Medical decision making narrative: ED COURSE AND MEDICAL DECISION MAKINF presenting with chest pain. EKG done in triage negative for acute ischemic changes. Cardiac workup is initiated. EKG: Performed in triage and interpreted by me. Normal sinus rhythm. Rate 63. Normal axis. AL normal. QRS duration normal. QTc normal. No pathologic Q waves. Some elevations in lateral leads however no reciprocal depressions, they do appear to be possible hyperacute T-waves versus early repolarization. No prior EKG for comparison. Immediately shared and discussed with electrical & instrumentation supervisor, who is here at bedside within minutes; agrees EKG does not appear consistent with STEMI. The yard labor supervisor canceled and heparin drip started with plan for likely yard labor supervisor tomorrow morning. Patient also very well-appearing at bedside, denies any significant pain now, just has some slight pressure remaining. I did repeat an EKG, which on my independent interpretation actually shows resolution of the slight elevations from before. Patient still very well-appearing on re-evaluation. Agreeable to admission and discussed with hospitalist. Lab Data 01/22/25 18:53 01/22/25 18:53 Labs: Lab Results 01/22/25 Range/Units 18:53 WBC 8.4 (4.5-10.0) K/mm3 RBC 4.35 (4.2-5.4) M/mm3 Hgb 12.7 (12.0-15.0) g/dL Hct 39.1 (37.0-47.0) % MCV 89.9 (80-100) fl MCH 29.2 (26-34) pg MCHC 32.5 (32-36) g/dl RDW 13.8 (11.5-14.5) % Plt Count 258 (150-375) k/mm3 MPV 10.4 (7.4-10.4) fl Immature Gran % (Auto) 0.4 (0-0.5) % Neut % (Auto) 43.5 L (45.5-73.1) % Lymph % (Auto) 44.3 H (18.3-44.2) % [place] % (Auto) 11.2 H (2.6-8.5) % Eos % (Auto) 0.4 (0-4.4) % Baso % (Auto) 0.2 (0.2-1.2) % Lymph # (Auto) 3.73 H (0.9-3.2) K/mm3 [place] # (Auto) 0.9 H (0.1-0.6) K/mm3 Eos # (Auto) 0.0 (0-0.3) K/mm3 Baso # (Auto) 0.0 (0.0-0.1) K/mm3 Abs Immat Gran (auto) 0.03 (0.00-0.031) K/mm3 Absolute Neuts (auto) 3.7 (1.3-6.7) K/mm3 Absolute Nucleated RBC 0.000 (0.0-0.012) K/mm3 Nucleated RBC % 0.0 (0.0-0.2) % PT 13.7 (11.1-14.7) Seconds INR 1.0 APTT 26.9 (22.3-36.8) Seconds Sodium 135 L (137-145) mmol/L Potassium 3.4 (3.4-5.0) mmol/L Chloride 102 (98-107) mmol/L Carbon Dioxide 27 (22-30) mmol/L Anion Gap 6 (4-12) mmol/L BUN 19 H (7-17) mg/dL Creatinine 1.05 H (0.7-1.0) mg/dL Estim Creat Clear Calc 31 ml/min Estimated GFR 50 L (59 - ) Glucose 114 H (65-110) mg/dL Calcium 9.3 (8.4-10.2) mg/dL Total Bilirubin 0.4 (0.2-1.3) mg/dL AST 31 (14-36) U/L ALT 15 (6-35) U/L Alkaline Phosphatase 52 (38-126) U/L Troponin I 0.022 (0.000-0.034) ng/mL Total Protein 8.1 (6.3-8.2) g/dL Albumin 4.0 (3.5-5.1) g/dL Triglycerides 270 H (<150) mg/dL Cholesterol 166 (0-200) mg/dL LDL Cholesterol Direct 47 mg/dL HDL Direct 60 mg/dL Blood Type AB Positive Antibody Screen Negative Critical Care Time Critical Care Time Critical Care Time: Yes Total Critical Care Time: 31 Discharge Plan Discharge Clinical Impression: Chest pain Patient Disposition: Still a Patient Condition: Serious
[2025-01-22 23:09] LABS: Troponin I 1.580 ng/mL (0.000-0.034)
[2025-01-23] VITALS (28 sets, daily range): BP systolic 79–131; BP diastolic 42–79; PULSE 42–73; RESP 14–24; TEMP 36.7–37.4; O2SAT 90–99
--- NOTE | 2025-01-23 | ECHO_ITS ---
Patient Info Name: Wilma Haji Age: 79 years : 1945 Gender: Female Ht: 63 in Wt: 140 lbs BSA: 1.69 m2 HR: 75 bpm BP: 108 / 58 mmHg Heart Rhythm: Sinus Rhythm Technical Quality: Fair Exam Date: 01/23/2025 3:53 PM Patient Status: I Admit Date: 01/22/2025 Exam Type: CA echo dop color flow w con Complete two-dimensional, color flow and Doppler transthoracic echocardiogram is performed with contrast to opacify the left ventricle and to improve the deliniation of the left ventricle endocardial borders. Staff Referring Physician: Сергей Webster MD Supervisor Dials: Katiuska Arreola Attending Provider: Amber Cavazos Contrast/Agitated Saline Contrast/Ag. Saline: Definity Amount: 2.00 ml Administered By: Katiuska Arreola Existing IV Access: Yes IV Access Condition: patent with no signs of infiltration Summary 1. Left ventricular systolic function is moderately reduced, estimated at 30-35. 2. The left ventricular diastolic function is grade II diastolic dysfunction. 3. Right ventricular chamber dimension is normal. 4. Right ventricular systolic function is normal. Left Ventricle Left ventricular chamber dimension is normal. Left ventricular systolic function is moderately reduced, estimated at 30-35. There is no increased left ventricular wall thickness. Left ventricular septal wall motion is abnormal. The left ventricular diastolic function is grade II diastolic dysfunction. Right Ventricle Right ventricular chamber dimension is normal. Right ventricular systolic function is normal. Left Atria Left atrial chamber dimension is mildly enlarged. Right Atria Right atrial chamber dimension is normal. Aortic Valve The aortic valve is trileaflet. There is no aortic valve sclerosis. There is no aortic valve stenosis. There is no aortic valve regurgitation. Pulmonic Valve The pulmonic valve is not well visualized. There is no pulmonic valve stenosis. There is no pulmonic regurgitation. Mitral Valve The mitral valve has normal leaflets. There is no mitral valve stenosis. There is no mitral valve regurgitation. Tricuspid Valve The tricuspid valve leaflets are normal. There is no significant tricuspid valve stenosis. There is no tricuspid valve regurgitation. No pulmonary hypertension, estimated pulmonary arterial systolic pressure is 43 mmHg. Pericardium/Pleural The pericardium appears normal. There is no pericardial effusion. Inferior Vena Cava Normal inferior vena cava with >50% collapse upon inspiration consistent with normal right atrial pressure, 10 mmHg. Aorta The aortic root size at the sinus of Valsalva is normal. The prox ascending aorta size is normal. Left Ventricular Outflow Tract Name Value Normal LVOT 2D LVOT Diameter 2.0 cm LVOT Doppler LVOT Peak Velocity 78 cm/s LVOT Peak Gradient 2 mmHg LVOT Mean Gradient 1 mmHg LVOT VTI 16 cm LVOT VTI/AV VTI Ratio 0.6 LVOT Stroke Volume 50 ml LVOT CO 2.7 l/min LVOT CI 1.6 l/min/m2 Pulmonic Valve Name Value Normal RVOT Doppler RVOT Peak Velocity 63 cm/s RVOT Peak Gradient 2 mmHg PV Doppler PV Peak Velocity 81 cm/s PV Peak Gradient 3 mmHg Mitral Valve Name Value Normal MV Diastolic Function MV E Peak Velocity 82 cm/s MV A Peak Velocity 59 cm/s MV E/A 1.4 MV Decel Time (PW) 268 ms MV Annular TDI MV E/e' (Septal) 12.7 MV E/e' (Lateral) 11.4 MV E/e' (Average) 12.1 Tricuspid Valve Name Value Normal TV Regurgitation Doppler TR Peak Velocity 287 cm/s TR Peak Gradient 33 mmHg Estimated PAP/RSVP RA Pressure 10 mmHg <=5 PA Systolic Pressure 43 mmHg <36 RV Systolic Pressure 43 mmHg <36 TV Annular TDI TV Lateral Zahraa s' Velocity 11.2 cm/s >=9.5 Aortic Valve Name Value Normal AV Doppler AV Peak Velocity 126 cm/s AV Peak Gradient 6 mmHg AV Mean Gradient 3 mmHg AV VTI 27 cm AV Area (Cont Eq VTI) 1.9 cm2 >=3.0 AV Area (Cont Eq Mo) 1.9 cm2 AV DI (Mo) 0.62 AV Regurgitation 2D LVOT Area 3.1 cm2 Ventricles Name Value Normal LV Dimensions 2D/MM IVS Diastolic Thickness (2D) 0.7 cm 0.6-1.0 LVID Diastole (2D) 4.8 cm 3.8-5.2 LVIW Diastolic Thickness (2D) 0.7 cm 0.6-0.9 LVID Systole (2D) 3.6 cm 2.2-3.5 LVOT Diameter 2.0 cm LV Mass (2D Cubed) 102.72 g 67.00-162.00 LV Mass Index (2D Cubed) 61 g/m2 43-95 Relative Wall Thickness (2D) 0.28 <=0.42 LV Fractional Shortening/Ejection Fraction 2D/MM LV Fractional Shortening (2D) 19 % 27-45 LV EF (2D Teichholz) 48 % LV Diastolic Volume (4C MOD) 73 ml LV EF (4C MOD) 31 % LV Diastolic Volume (2C MOD) 95 ml LV EF (2C MOD) 40 % LV Diastolic Volume (BP MOD) 84 ml 46-106 LV Diastolic Volume Index (BP MOD) 50 ml/m2 29-61 LV Systolic Volume (BP MOD) 57 ml 14-42 LV Systolic Volume Index (BP MOD) 34 ml/m2 8-24 LV EF (BP MOD) 32 % 54-74 LV Diastolic Length (4C) 7.6 cm LV Systolic Length (4C) 7.6 cm LV Stroke Volume (4C MOD) 22 ml Atria Name Value Normal LA Dimensions LA Volume (4C A-L) 39 ml LA Volume (BP A-L) 45 ml RA Dimensions RA Area (4C) 17.0 cm2 <=18.0 Wall Motion Scoring Report Signatures
[2025-01-23 01:43] LABS: Partial Thromboplastin Time 76.0 Seconds (22.3-36.8)
[2025-01-23 01:45] LABS: Troponin I 1.880 ng/mL (0.000-0.034)
[2025-01-23 04:28] LABS: Hematocrit 38.2 % (37.0-47.0); Hemoglobin 12.3 g/dL (12.0-15.0); Immature Granulocyte Percent A 0.2 % (0-0.5); Lymphocytes Absolute Auto 2.79 K/mm3 (0.9-3.2); Mean Corpuscular HGB Conc 32.2 g/dl (32-36); Mean Corpuscular Hemoglobin 29.6 pg (26-34); Mean Corpuscular Volume 92.0 fl (80-100); Nucleated Red Blood Cells Absolute Auto 0.000 K/mm3 (0.0-0.012); Nucleated Red Blood Cells Perc 0.0 % (0.0-0.2); Platelet Count Result 188 k/mm3 (150-375); Red Blood Count 4.15 M/mm3 (4.2-5.4); White Blood Count 9.3 K/mm3 (4.5-10.0)
[2025-01-23 04:45] LABS: Anion Gap 6 mmol/L (4-12); Blood Urea Nitrogen 16 mg/dL (7-17); Calcium 8.9 mg/dL (8.4-10.2); Carbon Dioxide 21 mmol/L (22-30); Chloride 110 mmol/L (98-107); Estimated CRCL calculation 39 ml/min; Estimated Glomerular Filt Rate > 60; Glucose 99 mg/dL (65-110); Magnesium 2.1 mg/dL (1.6-2.3); Potassium 3.8 mmol/L (3.4-5.0); Sodium 137 mmol/L (137-145)
[2025-01-23 05:00] LABS: Troponin I 2.010 ng/mL (0.000-0.034)
[2025-01-23 07:38] LABS: Partial Thromboplastin Time 59.8 Seconds (22.3-36.8)
[2025-01-23 07:59] LABS: Troponin I 1.960 ng/mL (0.000-0.034)
[2025-01-23] MEDS: ASPIRIN 81 MG CHEWABLE TABLET PO (08:12)
[2025-01-23] MEDS: BRIMONIDINE TARTRATE 0.2% OP SOLN 5 ML BTL 1 DROP EACH EYE ×2 (08:12→20:27)
--- NOTE | 2025-01-23 08:37 | WPDHPUPDATE1 ---
History and Physical Update Update Date/Time: 01/23/25 08:37 History and Physical has been reviewed, including an updated exam of the patient. There are NO changes in the patient's condition. Risks, benefits, and alternatives have been discussed and questions answered. Patient agrees to proceed with procedure.
--- NOTE | 2025-01-23 08:37 | WPDMODSED ---
Moderate Sedation Note-Pt Data Patient Data Allergies Allergy/AdvReac Type Severity Reaction Status Date / Time hydrocodone Allergy Mild Unknown Verified 01/22/25 20:33 propoxyphene Allergy Unknown Hives Verified 01/22/25 20:33 Home Medications ?Medication ?Instructions ?Recorded ?Confirmed ?Type latanoprost 0.005 % eye drops 1 drp EACH EYE HS 06/29/19 01/22/25 History brimonidine 0.2 % eye drops 1 drp EACH EYE Q12H 11/06/22 01/22/25 History dorzolamide 22.3 mg-timolol 6.8 1 drp ophthalmic (eye) ONCE 11/06/22 01/22/25 History mg/mL eye drops cholecalciferol (vitamin D3) 50 2,000 unit PO DAILY 01/22/25 01/22/25 History mcg (2,000 unit) capsule Current Medications: Active Medications Aspirin (Aspirin 81 Mg Chewable Tablet) 81 mg PO DAILY@0800 [facility] Last Admin: 01/23/25 08:12 Dose: 81 mg Brimonidine Tartrate (Brimonidine Tartrate 0.2% Op Soln 5 Ml Btl) 1 drop EACH EYE Q12H [facility] Last Admin: 01/23/25 08:12 Dose: 1 drop Heparin Sodium (Porcine) (Heparin Sodium 5,000 Units/Ml Vial) 4,000 units IV PUSH PRN PRN PRN Reason: aPTT less than 55 seconds Heparin Sodium (Porcine) (Heparin Sodium 5,000 Units/Ml Vial) 2,500 units IV PUSH PRN PRN PRN Reason: aPTT 55 - 70 seconds Heparin Sodium/Dextrose (Heparin Sodium/D5w 100 Units/Ml) 25,000 units in 250 mls @ 7 mls/hr IV CONT .Q24H [facility]; Protocol Last Titration: 01/23/25 01:07 Dose: 700 units/hr, 7 mls/hr Latanoprost (Latanoprost 0.005% Op Soln 2.5 Ml Btl) 1 drop EACH EYE [facility] Morphine Sulfate (Morphine Sulfate (*Crx) 2 Mg/Ml Inj) 2 mg IV PUSH Q2H PRN PRN Reason: Pain Rated 7-10 Sedation/Anesthesia: No previous sedation/anesthesia problems (including family history). [facility] Past Medical History Medical History Facial pressure Knee pain Cerumen impaction Otitis externa Surgical History Surgical History History of knee replacement (L) 2006 & (R)2011 Dr. Baird Family History Family History Father Family history of lymphoma Mother Family history of coronary artery disease Social History Social History Smoking status: Never smoker Second hand tobacco smoke exposure: Yes Alcohol intake: never Substance use: never Substance use type: does not use Do You Feel Safe in your Home?: Yes Lack of Transportation: No Lack of Food: Never True Current Housing: I Have Housing Concerned About Future Housing: No Difficulty Paying Gas/Electric Bills: No Difficulty Paying for Meds: No Currently Unemployed: No Education: Associate Degree Difficulty w/ Childcare or Family Care: No Gender identity (if verbalized by the patient): Female Spiritual care concerns: No (jehovah's witness) Mod Sed Physical Exam Physical Exam Pre Procedural Exam: Normal: Lungs, Heart Rate and Heart Rhythm Hours since solid foods: 12 Hours since liquid intake: 12 Mallampati Classification: class II Internal Medicine - PN: Obj Da Vital Signs Vital Signs: Vital Signs - 24 hr 01/22/25 18:42 01/22/25 18:50 01/22/25 18:50 Temperature Pulse Rate 63 65 Respiratory Rate 19 15 Blood Pressure 124/75 124/75 Pulse Oximetry 97 100 100 Oxygen Delivery Room Air Room Air 01/22/25 18:58 01/22/25 19:00 01/22/25 19:15 Temperature Pulse Rate 60 62 61 Respiratory Rate 21 H 17 Blood Pressure 116/97 H 139/86 Pulse Oximetry 99 98 Oxygen Delivery 01/22/25 19:31 01/22/25 19:45 01/22/25 20:00 Temperature Pulse Rate 66 59 L 61 Respiratory Rate 23 H 20 23 H Blood Pressure 132/80 118/69 126/69 Pulse Oximetry 99 96 96 Oxygen Delivery 01/22/25 20:16 01/22/25 21:55 01/22/25 23:17 Temperature 36.8 C Pulse Rate 66 66 Respiratory Rate 22 H 22 H Blood Pressure 118/69 110/84 Pulse Oximetry 97 96 Oxygen Delivery Room Air 01/23/25 00:00 01/23/25 00:00 01/23/25 00:00 Temperature 36.9 C Pulse Rate 66 59 L Respiratory Rate 16 Blood Pressure 107/79 Pulse Oximetry 97 Oxygen Delivery Room Air 01/23/25 02:00 01/23/25 04:00 01/23/25 04:00 Temperature 36.8 C Pulse Rate 53 L 70 Respiratory Rate 20 Blood Pressure 104/53 L Pulse Oximetry 97 Oxygen Delivery Room Air 01/23/25 04:00 01/23/25 06:00 01/23/25 07:52 Temperature 36.7 C Pulse Rate 59 L 64 56 L Respiratory Rate 18 Blood Pressure 118/59 L Pulse Oximetry 98 Oxygen Delivery Intake/Output Intake/Output: Intake & Output 01/20/25 01/21/25 01/22/25 01/23/25 23:59 23:59 23:59 23:59 Intake Total 39.1 Balance 39.1 Meds/Results Medications: Active Medications Generic Name Dose Route Start Last Admin Trade Name Freq PRN Reason Stop Dose Admin Aspirin 81 mg 01/23/25 08:00 01/23/25 08:12 Aspirin 81 Mg Chewable Tablet PO 81 mg DAILY@0800 [facility] Administration Brimonidine Tartrate 1 drop 01/23/25 09:00 01/23/25 08:12 Brimonidine Tartrate 0.2% Op Soln 5 Ml Btl EACH EYE 1 drop Q12H [facility] Administration Heparin Sodium (Porcine) 4,000 units 01/22/25 19:00 Heparin Sodium 5,000 Units/Ml Vial IV PUSH PRN PRN aPTT less than 55 seconds Heparin Sodium (Porcine) 2,500 units 01/22/25 19:00 Heparin Sodium 5,000 Units/Ml Vial IV PUSH PRN PRN aPTT 55 - 70 seconds Heparin Sodium/Dextrose 25,000 units in 250 mls @ 7 mls/hr 01/22/25 19:00 01/23/25 01:07 Heparin Sodium/D5w 100 Units/Ml IV CONT 700 units/hr .Q24H [facility] 7 mls/hr Titration Protocol 700 UNITS/HR Latanoprost 1 drop 01/23/25 21:00 Latanoprost 0.005% Op Soln 2.5 Ml Btl EACH EYE HS [facility] Morphine Sulfate 2 mg 01/22/25 20:32 Morphine Sulfate (*Crx) 2 Mg/Ml Inj IV PUSH Q2H PRN Pain Rated 7-10 Radiology Results: ITS Impressions Chest X-Ray 01/22/25 19:10 IMPRESSION: Mild pulmonary vascular congestion, without focal infiltrate or effusion. Labs 01/23/25 03:59 01/23/25 03:59 Labs: Laboratory Results - last 24 hr 01/22/25 01/22/25 01/23/25 18:53 22:23 01:07 WBC 8.4 RBC 4.35 Hgb 12.7 Hct 39.1 MCV 89.9 MCH 29.2 MCHC 32.5 RDW 13.8 Plt Count 258 MPV 10.4 Immature Gran % (Auto) 0.4 Neut % (Auto) 43.5 L Lymph % (Auto) 44.3 H [place] % (Auto) 11.2 H Eos % (Auto) 0.4 Baso % (Auto) 0.2 Lymph # (Auto) 3.73 H [place] # (Auto) 0.9 H Eos # (Auto) 0.0 Baso # (Auto) 0.0 Abs Immat Gran (auto) 0.03 Absolute Neuts (auto) 3.7 Absolute Nucleated RBC 0.000 Nucleated RBC % 0.0 PT 13.7 INR 1.0 APTT 26.9 76.0 H Sodium 135 L Potassium 3.4 Chloride 102 Carbon Dioxide 27 Anion Gap 6 BUN 19 H Creatinine 1.05 H Estim Creat Clear Calc 31 Estimated GFR 50 L Glucose 114 H Calcium 9.3 Magnesium Total Bilirubin 0.4 AST 31 ALT 15 Alkaline Phosphatase 52 Troponin I 0.022 1.580 H* D 1.880 H* Total Protein 8.1 Albumin 4.0 Triglycerides 270 H Cholesterol 166 LDL Cholesterol Direct 47 HDL Direct 60 Blood Type AB Positive Antibody Screen Negative 01/23/25 01/23/25 03:59 07:15 WBC 9.3 RBC 4.15 L Hgb 12.3 Hct 38.2 MCV 92.0 MCH 29.6 MCHC 32.2 RDW 13.8 Plt Count 188 MPV 10.8 H Immature Gran % (Auto) 0.2 Neut % (Auto) 58.7 Lymph % (Auto) 29.9 [place] % (Auto) 10.8 H Eos % (Auto) 0.2 Baso % (Auto) 0.2 Lymph # (Auto) 2.79 [place] # (Auto) 1.0 H Eos # (Auto) 0.0 Baso # (Auto) 0.0 Abs Immat Gran (auto) 0.02 Absolute Neuts (auto) 5.5 Absolute Nucleated RBC 0.000 Nucleated RBC % 0.0 PT INR APTT 59.8 H Sodium 137 Potassium 3.8 Chloride 110 H Carbon Dioxide 21 L Anion Gap 6 BUN 16 Creatinine 0.84 Estim Creat Clear Calc 39 Estimated GFR > 60 Glucose 99 Calcium 8.9 Magnesium 2.1 Total Bilirubin AST ALT Alkaline Phosphatase Troponin I 2.010 H* 1.960 H* Total Protein Albumin Triglycerides Cholesterol LDL Cholesterol Direct HDL Direct Blood Type Antibody Screen ASA Classification/Sedation ASA Classification/Sedation ASA Class: III Emergent: No Risks: Risks, benefits and alternatives explained and patient/family accepted plan for sedation. Patient re-evaluated immediately prior to sedation.
[2025-01-23] MEDS: SODIUM CHLORIDE 0.9% IV 1,000 ML 999 ML IV CONT (10:20)
--- NOTE | 2025-01-23 10:21 | WPDCARDPROC ---
Cardiac Cath Procedure Note Date of procedure:: 01/23/25 Performing physician:: Maddie Palma MD Indication:: CATHETERIZATION LABORATORY REPORT Procedure Date: 01/23/2025 Anesthesia: Versed and Fentanyl were ordered and given in my presence at 9:10 a.m., procedure ended at 9:45 a.m.. Supervision of nurse monitored moderate sedation with Versed and Fentanyl was provided for 35 minutes. 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 Risk of complications including but not limited to bleeding, infection, arrhythmia, stroke, worsening kidney function, blood loss, groin hematoma, limb loss, emergency coronary artery bypass grafting, and even were discussed with the patient and all questions were answered. The patient understood and wished to proceed. Time out called, patient name, date of , medical record number, allergies, procedure performed, identify Chief Steward/Stewardess, patient and staff member concurred with accurate data, procedure carried on. Findings: LEFT HEART CATHETERIZATION FINDINGS: 1. Left main: The left main coronary artery is widely patent without any significant obstructive disease. 2. Left anterior descending: The LAD and the diagonal branches have mild luminal irregularities without any significant obstructive angiographic disease. There is slow flow in the entire LAD and contrast clears after 6-7 beats. Flow is improved with intracoronary nitroglycerin. Contrast swelling can also be noted in coronary sinuses which clears after 5-6 beats. 3. Left circumflex: The left circumflex artery and the main marginal branches have mild luminal irregularities without any significant obstructive angiographic disease. 4. Right coronary artery: The RCA has mild luminal irregularities without any significant obstructive angiographic disease. The RCA is the dominant vessel. 5. Left ventricle: A. End-diastolic pressure 40 mm Hg. B. LV gram deferred. C. No significant gradient across aortic valve on catheter pullback. 6. Opening AO pressure 86/51 and closing AO pressure 94/59 mm Hg. Description of Procedure: Informed consent signed and placed in the chart. Patient transferred to laboratory cureman room. Prepped and draped in usual sterile fashion. 2% lidocaine injected subcutaneously in right wrist area. 22-gauge venipuncture catheter used to access the right radial artery with the Seldinger technique. 6-FR slender sheath placed in right radial artery. Nitroglycerin 200mcg, Verapamil 2.5mg, and Heparin 5000U was given intraarterial through the sheath. J wire advanced under fluoroscopy Five Micronesian FR 3.5 diagnostic catheter engaged Left Main Coronary Artery. 5 Micronesian FR4 diagnostic catheter engaged Right Coronary Artery Multiple orthogonal angiogram obtained and reviewed 5 Micronesian FR 4 diagnostic catheter crossed aortic valve to obtain LVEDP, LV angiogram deferred. Hemostasis was achieved by application of TR band. 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 Flow is improved with intracoronary nitroglycerin. Contrast swirling is also noted in coronary sinuses which clears in 5-6 beats. No further intervention was performed given contrast completely clears with no evidence of thrombus. Her SBP at this time was ranging 70s to 80s (secondary to sedation, verapamil administered in radial sheath for radial artery spasm, intracoronary nitroglycerin) and DBP was in the 50s. Her LVEDP is measured at 14. Her coronary perfusion pressure (DBP-LVEDP) is low which could explain slow flow. -Hypotension-iatrogenic (secondary to sedation, verapamil administered in radial sheath for radial artery spasm, intracoronary nitroglycerin); treated with IV fluids and IV phenylephrine. Closing SBP in the 90s. Post Operative Condition: Stable No significant blood loss Disposition: Floor Plan: The patient will be monitored in the recovery area. TR band removal per protocol. Resume heparin after removal of TR band. DAPT for 1 year followed by ASA indefinitely. Continue aggressive medical therapy and risk factor modification. TTE. Check renal function in a.m. Check and replace electrolytes to keep potassium greater than 4 and magnesium greater than 2.
--- NOTE | 2025-01-23 10:26 | PC.NURSE ---
This patient, Wilma Haji, was admitted to Intensive Care Unit-1. Patient/family oriented to hospital policies and general routines including ID bracelet, bed and alarms, visiting hours, pain management, procedures, bathroom and other care routines, personal items, smoking policy, room service/diet, and visiting hours. Information on how to activate the Rapid Response Team has been discussed. Patient/Family are encouraged to report perceived risks to care and to ask questions if they do not understand what they are told or what they should do.
--- NOTE | 2025-01-23 10:31 | PC.NURSE ---
Pt arrived from laborer construction or leak gang and heparin was not infusing. Ordered to hold heparin until TR band is discontinued.
--- NOTE | 2025-01-23 10:44 | SUR.PHASEII ---
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 This RN called Dr. Palma and received orders for 1L NS bolus and 100mcg of zev. The patients BP increased to 93/54, but continued to decline back into the 70s systolic. Dr. Palma gave verbal orders to start a levophed drip, this RN initiated the drip per protocol and notified the ICU of the situation. This RN gave bedside report to ICU RNs. casket liner notified to reach out to the flight/transport nurse for a physician to physician report. ICU care assumed @1020.
[2025-01-23] MEDS: LACTATED RINGERS 1,000 ML 999 ML IV CONT (11:03)
[2025-01-23] MEDS: NOREPINEPHRINE 8 MG/D5W 250 ML 8 MG/250 ML BAG 9.38 MG IV CONT (11:03)
--- NOTE | 2025-01-23 11:10 | WPDCNINT ---
Assessment and Plan Assessment and plan (1) Chest pain: Code(s): R07.9 - Chest pain, unspecified Status: Acute Assessment and Plan: Patient presented with chest pain with elevated troponin. Chest pain is resolved Cardiac catheterization showed nonobstructive coronary disease but low-flow in LAD which urgent care feels can explain her chest pain as NSTEMI Continue aspirin and atorvastatin Continue heparin drip at this time as per Cardiology Patient is on room air Will also obtain echo, BNP (2) Hypotension: Code(s): I95.9 - Hypotension, unspecified Status: Acute Assessment and Plan: Acute hypotension likely iatrogenic secondary to verapamil and nitroglycerin infusion LR bolus and NS infusion Check echo Levophed infusion PICC line Check UA, procalcitonin, lactic acid level (3) NSTEMI (non-ST elevated myocardial infarction): Code(s): I21.4 - Non-ST elevation (NSTEMI) myocardial infarction Status: Acute Assessment and Plan: See above Plan DVT prophylaxis -heparin drip Nutrition -diet or Code Status - Full Code Total Critical Care Time - 32minutes Due to a high probability of clinically significant, life threatening deterioration, the patient required my highest level of preparedness to intervene emergently and I personally spent this critical care time directly and personally managing the patient. This critical care time included obtaining a history; examining the patient; pulse oximetry; ordering and review of studies; arranging urgent treatment with development of a management plan; evaluation of patient's response to treatment; frequent reassessment; and discussions with other providers. It was exclusive of separately billable procedures and treating other patients and teaching time. Please see Assessment and Plan section and the rest of the note for further information on patient assessment and treatment [employer] Operator Consult Note Consult date: 01/23/25 Reason for consult: Hypotension HPI: Wilma Haji is a 79 year old female with no significant past medical history presented yesterday to ER with chief complaint of chest pain. Patient states she was working in her yd and doing gardening when she started having chest pain in the middle of her chest which she rated at 8 out 10. Pain was achy with no radiation she did not had any dizziness lightheadedness but did feel short of breath. No nausea or vomiting. Prior to that patient states she was feeling fine and did not had any symptoms. She denies any fever cough shortness of breath dysuria hematuria orthopnea PND diarrhea constipation fever dizziness lightheadedness or loss of consciousness. No orthopnea PND. All other systems were reviewed and were negative. Workup in the ER showed 1st troponin to be negative but later troponin increased. She had a normal EKG. She was given nitroglycerin and started on heparin infusion.Patient was today taken to cardiac catheterization lab and underwent cardiac catheterization which showed nonobstructive coronary disease with 50% stenosis in mid RCA. Patient also appeared to have her slow flow as per urgent care in LAD. During the procedure patient was given intracoronary nitroglycerin and then intra-arterial verapamil for radial artery vaso spasm which led to drop in the heart rate and blood pressure and patient was given phenylephrine push and later started on norepinephrine infusion for blood pressure support. Patient is being now admitted to ICU for further evaluation management. Patient otherwise states she feels better and denies any physical complaints at this time. She states chest pain has resolved. Review of Systems Review of Systems: All systems reviewed & are unremarkable except as noted in HPI and below (HPI) [facility] Past Medical History Medical History Facial pressure Knee pain Cerumen impaction Otitis externa Surgical History Surgical History History of knee replacement (L) 2006 & (R)2011 Dr. Baird Family History Family History Father Family history of lymphoma Mother Family history of coronary artery disease Social History Social History Smoking status: Never smoker Second hand tobacco smoke exposure: Yes Alcohol intake: never Substance use: never Substance use type: does not use Do You Feel Safe in your Home?: Yes Lack of Transportation: No Lack of Food: Never True Current Housing: I Have Housing Concerned About Future Housing: No Difficulty Paying Gas/Electric Bills: No Difficulty Paying for Meds: No Currently Unemployed: No Education: Associate Degree Difficulty w/ Childcare or Family Care: No Gender identity (if verbalized by the patient): Female Spiritual care concerns: No (christian) Meds Home Medications and Allergies Home Medications ?Medication ?Instructions ?Recorded ?Confirmed ?Type latanoprost 0.005 % eye drops 1 drp EACH EYE HS 06/29/19 01/22/25 History brimonidine 0.2 % eye drops 1 drp EACH EYE Q12H 11/06/22 01/22/25 History dorzolamide 22.3 mg-timolol 6.8 1 drp ophthalmic (eye) ONCE 11/06/22 01/22/25 History mg/mL eye drops cholecalciferol (vitamin D3) 50 2,000 unit PO DAILY 01/22/25 01/22/25 History mcg (2,000 unit) capsule Allergies Allergy/AdvReac Type Severity Reaction Status Date / Time hydrocodone Allergy Mild Unknown Verified 01/22/25 20:33 propoxyphene Allergy Unknown Hives Verified 01/22/25 20:33 Vital Signs Vital Signs - 24 hr 01/22/25 18:42 01/22/25 18:50 01/22/25 18:50 Temperature Pulse Rate 63 65 Respiratory Rate 19 15 Blood Pressure 124/75 124/75 Pulse Oximetry 97 100 100 Oxygen Delivery Room Air Room Air 01/22/25 18:58 01/22/25 19:00 01/22/25 19:15 Temperature Pulse Rate 60 62 61 Respiratory Rate 21 H 17 Blood Pressure 116/97 H 139/86 Pulse Oximetry 99 98 Oxygen Delivery 01/22/25 19:31 01/22/25 19:45 01/22/25 20:00 Temperature Pulse Rate 66 59 L 61 Respiratory Rate 23 H 20 23 H Blood Pressure 132/80 118/69 126/69 Pulse Oximetry 99 96 96 Oxygen Delivery 01/22/25 20:16 01/22/25 21:55 01/22/25 23:17 Temperature 36.8 C Pulse Rate 66 66 Respiratory Rate 22 H 22 H Blood Pressure 118/69 110/84 Pulse Oximetry 97 96 Oxygen Delivery Room Air 01/23/25 00:00 01/23/25 00:00 01/23/25 00:00 Temperature 36.9 C Pulse Rate 66 59 L Respiratory Rate 16 Blood Pressure 107/79 Pulse Oximetry 97 Oxygen Delivery Room Air 01/23/25 02:00 01/23/25 04:00 01/23/25 04:00 Temperature 36.8 C Pulse Rate 53 L 70 Respiratory Rate 20 Blood Pressure 104/53 L Pulse Oximetry 97 Oxygen Delivery Room Air 01/23/25 04:00 01/23/25 06:00 01/23/25 07:52 Temperature 36.7 C Pulse Rate 59 L 64 56 L Respiratory Rate 18 Blood Pressure 118/59 L Pulse Oximetry 98 Oxygen Delivery 01/23/25 08:00 01/23/25 08:00 01/23/25 10:15 Temperature Pulse Rate 58 L 45 L Respiratory Rate 14 Blood Pressure 79/46 L Pulse Oximetry 98 90 Oxygen Delivery Room Air Room Air 01/23/25 10:18 01/23/25 11:03 Temperature Pulse Rate 42 L 47 L Respiratory Rate 14 Blood Pressure 93/54 L 106/60 Pulse Oximetry 90 Oxygen Delivery Room Air Exam Narrative: General: Pt is alert awake and in NAD Lungs/Chest: Trachea central Clear BS B/L, No crackles or wheezing. Cardiac: RRR. Normal S1 S2. No murmurs Circulation: Bilateral dorsalis pedis Pedal pulses are intact and symmetrical. Feet are warm Abdomen: Normal bowel sounds.. Soft. NT. ND. Extremities: No clubbing, cyanosis or edema. Warm TR band on right wrist right hand has delayed cap refill but patient denies any pain : Angela in place Neurologic: Follows commands. Moves all 4 extremities PERRL Skin: No Rash Results Labs 01/23/25 03:59 01/23/25 03:59 Labs: Impressions Chest X-Ray 01/22/25 19:10 IMPRESSION: Mild pulmonary vascular congestion, without focal infiltrate or effusion. Short CBC 01/22/25 01/23/25 Range/Units 18:53 03:59 WBC 8.4 9.3 (4.5-10.0) K/mm3 Hgb 12.7 12.3 (12.0-15.0) g/dL Hct 39.1 38.2 (37.0-47.0) % Plt Count 258 188 (150-375) k/mm3 BMP 01/22/25 01/23/25 18:53 03:59 Sodium 135 L 137 Potassium 3.4 3.8 Chloride 102 110 H Carbon Dioxide 27 21 L BUN 19 H 16 Creatinine 1.05 H 0.84 Glucose 114 H 99 Calcium 9.3 8.9 Cardiac Enzymes 01/22/25 01/22/25 01/23/25 Range/Units 18:53 22:23 01:07 Troponin I 0.022 1.580 H* D 1.880 H* (0.000-0.034) ng/mL 01/23/25 01/23/25 Range/Units 03:59 07:15 Troponin I 2.010 H* 1.960 H* (0.000-0.034) ng/mL Liver Function 01/22/25 Range/Units 18:53 Total Bilirubin 0.4 (0.2-1.3) mg/dL AST 31 (14-36) U/L ALT 15 (6-35) U/L Alkaline Phosphatase 52 (38-126) U/L Albumin 4.0 (3.5-5.1) g/dL ECG Interpretation: Sinus rhythm with low QRS voltage Quality VTE Prophylaxis VTE prophylaxis: pharmacologic ordered Hospitalist MIPS Advance Care Plan I have confirmed that the patient's Advanced Care Plan is present, code status is documented, or surrogate decision maker is listed in patient medical record.: Yes Medication Reconciliation I have utilized all available resources to obtain, update and review the patients current medications (includes all prescriptions, OTC, herbals, cannabis, and nutritional supplements).: Yes
[2025-01-23] MEDS: LIDOCAINE 1% PF INJ 5 ML VIAL INFILTRATE (11:15)
[2025-01-23] MEDS: CLOPIDOGREL BISULFATE 300 MG TABLET PO (11:55)
[2025-01-23] MEDS: SODIUM CHLORIDE 0.9% IV 1,000 ML 125 ML IV CONT (12:06)
[2025-01-23 12:14] LABS: NT Pro B Type Natriuretic Pept 3530 pg/mL (19.9-100)
[2025-01-23 12:57] LABS: Procalcitonin < 0.0 ng/mL
[2025-01-23 13:16] LABS: Partial Thromboplastin Time 79.7 Seconds (22.3-36.8)
[2025-01-23] MEDS: CENTRAL LINE FLUSH 10 ML IV PUSH ×2 (14:07→22:00)
--- NOTE | 2025-01-23 15:26 | P.PNIM_ITS ---
Progress Note: A&P Assessment and Plan (1) NSTEMI (non-ST elevated myocardial infarction): Code(s): I21.4 - Non-ST elevation (NSTEMI) myocardial infarction Status: Acute Assessment and Plan: Patient presented with chest pain with elevated troponin. Troponin peaked at 2.0. BNP 3530. Cardiac catheterization showed nonobstructive coronary disease but low-flow in LAD which chief credit officer feels can explain her chest pain as NSTEMI CXR reviewed and showing no focal infiltrate or effusion Chest pain has resolved. Continue aspirin and Plavix Continue heparin drip at this time as per Cardiology Echo ordered (2) Hypotension: Code(s): I95.9 - Hypotension, unspecified Status: Acute Assessment and Plan: Acute hypotension likely iatrogenic secondary to verapamil and nitroglycerin infusion LR bolus and NS infusion given and started on Levophed. Lactic 1.5. PCT 0. Echo ordered. LUE PICC line placed. Sepsis seems less likely. Wean Levophed to keep MAP>65. (3) Chest pain: Code(s): R07.9 - Chest pain, unspecified Status: Acute Assessment and Plan: As above Plan DVT prophylaxis -heparin drip Code Status - Full Code Subjective Date/time seen: 01/23/25 15:26 Interval history: 79yo female with glaucoma who presents with chest pain. She is back from her C and moved to the ICU for HoTN. She feels better. no further chest pain. no SOB. no n/v Exam Narrative: AF 98.3 115/55 56 21 99% ra Gen - NARD Chest - lungs clear anteriorly. CV - RRR S1/S2. Tele showing bradycardia at times to 50's Abd - Soft, NT/ND, Positive BS Ext - No pedal edema. RUE secured to board with right radial artery sheath in place Psych - Nml mood and affect Skin - Warm and dry Objective Data Vital Signs Vital Signs: Vital Signs - 24 hr 01/22/25 18:42 01/22/25 18:50 01/22/25 18:50 Temperature Pulse Rate 63 65 Pulse Rate [Right Radial Palpation] Respiratory Rate 19 15 Blood Pressure 124/75 124/75 Pulse Oximetry 97 100 100 Oxygen Delivery Room Air Room Air 01/22/25 18:58 01/22/25 19:00 01/22/25 19:15 Temperature Pulse Rate 60 62 61 Pulse Rate [Right Radial Palpation] Respiratory Rate 21 H 17 Blood Pressure 116/97 H 139/86 Pulse Oximetry 99 98 Oxygen Delivery 01/22/25 19:31 01/22/25 19:45 01/22/25 20:00 Temperature Pulse Rate 66 59 L 61 Pulse Rate [Right Radial Palpation] Respiratory Rate 23 H 20 23 H Blood Pressure 132/80 118/69 126/69 Pulse Oximetry 99 96 96 Oxygen Delivery 01/22/25 20:16 01/22/25 21:55 01/22/25 23:17 Temperature 98.3 F Pulse Rate 66 66 Pulse Rate [Right Radial Palpation] Respiratory Rate 22 H 22 H Blood Pressure 118/69 110/84 Pulse Oximetry 97 96 Oxygen Delivery Room Air 01/23/25 00:00 01/23/25 00:00 01/23/25 00:00 Temperature 98.4 F Pulse Rate 66 59 L Pulse Rate [Right Radial Palpation] Respiratory Rate 16 Blood Pressure 107/79 Pulse Oximetry 97 Oxygen Delivery Room Air 01/23/25 02:00 01/23/25 04:00 01/23/25 04:00 Temperature 98.2 F Pulse Rate 53 L 70 Pulse Rate [Right Radial Palpation] Respiratory Rate 20 Blood Pressure 104/53 L Pulse Oximetry 97 Oxygen Delivery Room Air 01/23/25 04:00 01/23/25 06:00 01/23/25 07:52 Temperature 98.0 F Pulse Rate 59 L 64 56 L Pulse Rate [Right Radial Palpation] Respiratory Rate 18 Blood Pressure 118/59 L Pulse Oximetry 98 Oxygen Delivery 01/23/25 08:00 01/23/25 08:00 01/23/25 10:15 Temperature Pulse Rate 58 L 45 L Pulse Rate [Right Radial Palpation] Respiratory Rate 14 Blood Pressure 79/46 L Pulse Oximetry 98 90 Oxygen Delivery Room Air Room Air 01/23/25 10:18 01/23/25 10:43 01/23/25 11:03 Temperature 98.5 F Pulse Rate 42 L 45 L 47 L Pulse Rate [Right Radial Palpation] 45 L Respiratory Rate 14 17 Blood Pressure 93/54 L 97/54 L 106/60 Pulse Oximetry 90 99 Oxygen Delivery Room Air 01/23/25 11:07 01/23/25 11:37 01/23/25 12:00 Temperature 98.4 F Pulse Rate 46 L 48 L Pulse Rate [Right Radial Palpation] 45 L 48 L Respiratory Rate 20 16 Blood Pressure 106/60 Pulse Oximetry 96 97 99 Oxygen Delivery Room Air 01/23/25 12:00 01/23/25 12:00 01/23/25 12:37 Temperature 98.3 F Pulse Rate 52 L 53 L 56 L Pulse Rate [Right Radial Palpation] 56 L Respiratory Rate 20 21 H Blood Pressure 102/67 115/55 L Pulse Oximetry 97 99 Oxygen Delivery Intake/Output Intake/Output: Intake & Output 01/20/25 01/21/25 01/22/25 01/23/25 23:59 23:59 23:59 23:59 Intake Total 1344.9 Balance 1344.9 Meds/Results Medications: Active Medications Generic Name Dose Route Start Last Admin Trade Name Freq PRN Reason Stop Dose Admin Aspirin 81 mg 01/23/25 08:00 01/23/25 08:12 Aspirin 81 Mg Chewable Tablet PO 81 mg DAILY@0800 SHANEKA Administration Brimonidine Tartrate 1 drop 01/23/25 09:00 01/23/25 08:12 Brimonidine Tartrate 0.2% Op Soln 5 Ml Btl EACH EYE 1 drop Q12H SHANEKA Administration Clopidogrel Bisulfate 75 mg 01/24/25 09:00 Clopidogrel Bisulfate 75 Mg Tablet PO QAM SHANEKA Heparin Sodium (Porcine) 4,000 units 01/22/25 19:00 Heparin Sodium 5,000 Units/Ml Vial IV PUSH PRN PRN aPTT less than 55 seconds Heparin Sodium (Porcine) 2,500 units 01/22/25 19:00 Heparin Sodium 5,000 Units/Ml Vial IV PUSH PRN PRN aPTT 55 - 70 seconds Heparin Sodium/Dextrose 25,000 units in 250 mls @ 0 mls/hr 01/22/25 19:00 01/23/25 10:31 Heparin Sodium/D5w 100 Units/Ml IV CONT 0 units/hr .Q0M SHANEKA 0 mls/hr Titration Protocol Sodium Chloride 1,000 mls @ 125 mls/hr 01/23/25 09:52 01/23/25 12:06 Normal Saline Iv IV CONT 01/23/25 17:51 125 mls/hr .Q8H ONE Administration Norepinephrine Bitartrate 8 mg in 250 mls @ 9.375 mls/hr 01/23/25 10:55 01/23/25 11:03 Levophed 8 Mg/D5w 250 Ml IV CONT 5 mcg/min .Q24H SHANEKA 9.38 mls/hr Administration Protocol 5 MCG/MIN Latanoprost 1 drop 01/23/25 21:00 Latanoprost 0.005% Op Soln 2.5 Ml Btl EACH EYE HS SHANEKA Morphine Sulfate 2 mg 01/22/25 20:32 Morphine Sulfate (*Crx) 2 Mg/Ml Inj IV PUSH Q2H PRN Pain Rated 7-10 Sodium Chloride 10 ml 01/23/25 14:00 01/23/25 14:07 Central Line Flush IV PUSH 10 ml Q8HR SHANEKA Administration Sodium Chloride 10 ml 01/23/25 11:53 Central Line Flush IV PUSH PRN PRN with TPN bag changes Sodium Chloride 20 ml 01/23/25 11:53 Central Line Flush IV PUSH PRN PRN after blood draws Radiology Results: ITS Impressions Chest X-Ray 01/23/25 11:43 IMPRESSION: No focal infiltrate or effusion. Left upper extremity PICC line in good position and ready for immediate use. Labs Labs: Laboratory Results - last 24 hr 01/22/25 01/22/25 01/23/25 18:53 22:23 01:07 WBC 8.4 RBC 4.35 Hgb 12.7 Hct 39.1 MCV 89.9 MCH 29.2 MCHC 32.5 RDW 13.8 Plt Count 258 MPV 10.4 Immature Gran % (Auto) 0.4 Neut % (Auto) 43.5 L Lymph % (Auto) 44.3 H [place] % (Auto) 11.2 H Eos % (Auto) 0.4 Baso % (Auto) 0.2 Lymph # (Auto) 3.73 H [place] # (Auto) 0.9 H Eos # (Auto) 0.0 Baso # (Auto) 0.0 Abs Immat Gran (auto) 0.03 Absolute Neuts (auto) 3.7 Absolute Nucleated RBC 0.000 Nucleated RBC % 0.0 PT 13.7 INR 1.0 APTT 26.9 76.0 H Sodium 135 L Potassium 3.4 Chloride 102 Carbon Dioxide 27 Anion Gap 6 BUN 19 H Creatinine 1.05 H Estim Creat Clear Calc 31 Estimated GFR 50 L Glucose 114 H Lactic Acid Calcium 9.3 Magnesium Total Bilirubin 0.4 AST 31 ALT 15 Alkaline Phosphatase 52 Troponin I 0.022 1.580 H* D 1.880 H* NT-Pro-B Natriuret Pep Total Protein 8.1 Albumin 4.0 Triglycerides 270 H Cholesterol 166 LDL Cholesterol Direct 47 HDL Direct 60 Procalcitonin Blood Type AB Positive Antibody Screen Negative 01/23/25 01/23/25 01/23/25 03:59 07:15 11:34 WBC 9.3 RBC 4.15 L Hgb 12.3 Hct 38.2 MCV 92.0 MCH 29.6 MCHC 32.2 RDW 13.8 Plt Count 188 MPV 10.8 H Immature Gran % (Auto) 0.2 Neut % (Auto) 58.7 Lymph % (Auto) 29.9 [place] % (Auto) 10.8 H Eos % (Auto) 0.2 Baso % (Auto) 0.2 Lymph # (Auto) 2.79 [place] # (Auto) 1.0 H Eos # (Auto) 0.0 Baso # (Auto) 0.0 Abs Immat Gran (auto) 0.02 Absolute Neuts (auto) 5.5 Absolute Nucleated RBC 0.000 Nucleated RBC % 0.0 PT INR APTT 59.8 H Sodium 137 Potassium 3.8 Chloride 110 H Carbon Dioxide 21 L Anion Gap 6 BUN 16 Creatinine 0.84 Estim Creat Clear Calc 39 Estimated GFR > 60 Glucose 99 Lactic Acid 1.5 Calcium 8.9 Magnesium 2.1 Total Bilirubin AST ALT Alkaline Phosphatase Troponin I 2.010 H* 1.960 H* NT-Pro-B Natriuret Pep 3530 H Total Protein Albumin Triglycerides Cholesterol LDL Cholesterol Direct HDL Direct Procalcitonin < 0.0 Blood Type Antibody Screen 01/23/25 12:47 WBC RBC Hgb Hct MCV MCH MCHC RDW Plt Count MPV Immature Gran % (Auto) Neut % (Auto) Lymph % (Auto) [place] % (Auto) Eos % (Auto) Baso % (Auto) Lymph # (Auto) [place] # (Auto) Eos # (Auto) Baso # (Auto) Abs Immat Gran (auto) Absolute Neuts (auto) Absolute Nucleated RBC Nucleated RBC % PT INR APTT 79.7 H Sodium Potassium Chloride Carbon Dioxide Anion Gap BUN Creatinine Estim Creat Clear Calc Estimated GFR Glucose Lactic Acid Calcium Magnesium Total Bilirubin AST ALT Alkaline Phosphatase Troponin I NT-Pro-B Natriuret Pep Total Protein Albumin Triglycerides Cholesterol LDL Cholesterol Direct HDL Direct Procalcitonin Blood Type Antibody Screen
--- NOTE | 2025-01-23 15:57 | PM.PNCARD ---
Progress Note: A&P Assessment and Plan (1) NSTEMI (non-ST elevated myocardial infarction): Code(s): I21.4 - Non-ST elevation (NSTEMI) myocardial infarction Status: Acute (2) Hypotension: Code(s): I95.9 - Hypotension, unspecified Status: Acute Plan NSTEMI Hypotension Plan: -Patient's chest pain has resolved. Troponin is down trending. Blood pressure is improving -Catheterization showed no obstructive CAD. However she has slow flow in all her coronary arteries most pronounced in the LAD which improved with intracoronary nitroglycerin. Recommend vasodilators for treatment. However unable to initiate due to hypotension at this time. 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 This improved with IV fluids, IV phenylephrine pushes, and low-dose Levophed drip. Levophed has been weaned off with SBP now in the 90s. Avoid any blood pressure reducing medicines for the next 24 hours -Follow-up TTE -Check and replace electrolytes to keep potassium greater than 4 and magnesium greater than 2 -Check renal function in a.m. -Follow-up with cardiology in 1 month -Plan was discussed with patient and she is agreeable. All questions were answered to her satisfaction Subjective Date/time seen: 01/23/25 15:57 Interval history: Reason for encounter: NSTEMI Interval history: Patient denies any chest pain, shortness of breath, dizziness, lightheadedness, palpitations. Patient had cardiac catheterization this morning with the no obstructive CAD. 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 This improved with IV fluids, IV phenylephrine pushes, and low-dose Levophed drip. Levophed has been weaned off with SBP now in the 90s. Review of Systems Cardiovascular: Comments: As per HPI Respiratory: Comments: As per HPI Exam Narrative: General: Alert oriented x3, no acute distress Neck: Supple, no JVD Chest: Bilaterally clear to auscultation, no rales or rhonchi Cardiac: S1, S2 +, regular rate, regular rhythm, no murmurs or rubs Extremities: No pedal edema, no skin rash Neurologic: Alert and oriented x3, no focal neurological deficits Objective Data Vital Signs Vital Signs: Vital Signs - 24 hr 01/22/25 18:42 01/22/25 18:50 01/22/25 18:50 Temperature Pulse Rate 63 65 Pulse Rate [Right Radial Palpation] Respiratory Rate 19 15 Blood Pressure 124/75 124/75 Pulse Oximetry 97 100 100 Oxygen Delivery Room Air Room Air 01/22/25 18:58 01/22/25 19:00 01/22/25 19:15 Temperature Pulse Rate 60 62 61 Pulse Rate [Right Radial Palpation] Respiratory Rate 21 H 17 Blood Pressure 116/97 H 139/86 Pulse Oximetry 99 98 Oxygen Delivery 01/22/25 19:31 01/22/25 19:45 01/22/25 20:00 Temperature Pulse Rate 66 59 L 61 Pulse Rate [Right Radial Palpation] Respiratory Rate 23 H 20 23 H Blood Pressure 132/80 118/69 126/69 Pulse Oximetry 99 96 96 Oxygen Delivery 01/22/25 20:16 01/22/25 21:55 01/22/25 23:17 Temperature 36.8 C Pulse Rate 66 66 Pulse Rate [Right Radial Palpation] Respiratory Rate 22 H 22 H Blood Pressure 118/69 110/84 Pulse Oximetry 97 96 Oxygen Delivery Room Air 01/23/25 00:00 01/23/25 00:00 01/23/25 00:00 Temperature 36.9 C Pulse Rate 66 59 L Pulse Rate [Right Radial Palpation] Respiratory Rate 16 Blood Pressure 107/79 Pulse Oximetry 97 Oxygen Delivery Room Air 01/23/25 02:00 01/23/25 04:00 01/23/25 04:00 Temperature 36.8 C Pulse Rate 53 L 70 Pulse Rate [Right Radial Palpation] Respiratory Rate 20 Blood Pressure 104/53 L Pulse Oximetry 97 Oxygen Delivery Room Air 01/23/25 04:00 01/23/25 06:00 01/23/25 07:52 Temperature 36.7 C Pulse Rate 59 L 64 56 L Pulse Rate [Right Radial Palpation] Respiratory Rate 18 Blood Pressure 118/59 L Pulse Oximetry 98 Oxygen Delivery 01/23/25 08:00 01/23/25 08:00 01/23/25 10:15 Temperature Pulse Rate 58 L 45 L Pulse Rate [Right Radial Palpation] Respiratory Rate 14 Blood Pressure 79/46 L Pulse Oximetry 98 90 Oxygen Delivery Room Air Room Air 01/23/25 10:18 01/23/25 10:43 01/23/25 11:03 Temperature 36.9 C Pulse Rate 42 L 45 L 47 L Pulse Rate [Right Radial Palpation] 45 L Respiratory Rate 14 17 Blood Pressure 93/54 L 97/54 L 106/60 Pulse Oximetry 90 99 Oxygen Delivery Room Air 01/23/25 11:07 01/23/25 11:37 01/23/25 12:00 Temperature 36.9 C Pulse Rate 46 L 48 L Pulse Rate [Right Radial Palpation] 45 L 48 L Respiratory Rate 20 16 Blood Pressure 106/60 Pulse Oximetry 96 97 99 Oxygen Delivery Room Air 01/23/25 12:00 01/23/25 12:00 01/23/25 12:37 Temperature 36.8 C Pulse Rate 52 L 53 L 56 L Pulse Rate [Right Radial Palpation] 56 L Respiratory Rate 20 21 H Blood Pressure 102/67 115/55 L Pulse Oximetry 97 99 Oxygen Delivery 01/23/25 13:37 01/23/25 14:00 01/23/25 14:00 Temperature Pulse Rate 58 L 73 73 Pulse Rate [Right Radial Palpation] 58 L Respiratory Rate 19 21 H Blood Pressure 131/69 107/67 Pulse Oximetry 97 96 Oxygen Delivery 01/23/25 14:37 01/23/25 15:37 Temperature Pulse Rate 47 L 51 L Pulse Rate [Right Radial Palpation] 47 L 51 L Respiratory Rate 16 17 Blood Pressure 110/69 98/57 L Pulse Oximetry 94 93 Oxygen Delivery Intake/Output Intake/Output: Intake & Output 01/20/25 01/21/25 01/22/25 01/23/25 23:59 23:59 23:59 23:59 Intake Total 1344.9 Balance 1344.9 Meds/Results Medications: Active Medications Generic Name Dose Route Start Last Admin Trade Name Freq PRN Reason Stop Dose Admin Aspirin 81 mg 01/23/25 08:00 01/23/25 08:12 Aspirin 81 Mg Chewable Tablet PO 81 mg DAILY@0800 [facility] Administration Brimonidine Tartrate 1 drop 01/23/25 09:00 01/23/25 08:12 Brimonidine Tartrate 0.2% Op Soln 5 Ml Btl EACH EYE 1 drop Q12H SHANEKA Administration Clopidogrel Bisulfate 75 mg 01/24/25 09:00 Clopidogrel Bisulfate 75 Mg Tablet PO QAM SHANEKA Heparin Sodium (Porcine) 4,000 units 01/22/25 19:00 Heparin Sodium 5,000 Units/Ml Vial IV PUSH PRN PRN aPTT less than 55 seconds Heparin Sodium (Porcine) 2,500 units 01/22/25 19:00 Heparin Sodium 5,000 Units/Ml Vial IV PUSH PRN PRN aPTT 55 - 70 seconds Heparin Sodium/Dextrose 25,000 units in 250 mls @ 0 mls/hr 01/22/25 19:00 01/23/25 10:31 Heparin Sodium/D5w 100 Units/Ml IV CONT 0 units/hr .Q0M SHANEKA 0 mls/hr Titration Protocol Sodium Chloride 1,000 mls @ 125 mls/hr 01/23/25 09:52 01/23/25 12:06 Normal Saline Iv IV CONT 01/23/25 17:51 125 mls/hr .Q8H ONE Administration Norepinephrine Bitartrate 8 mg in 250 mls @ 9.375 mls/hr 01/23/25 10:55 01/23/25 11:03 Levophed 8 Mg/D5w 250 Ml IV CONT 5 mcg/min .Q24H SHANEKA 9.38 mls/hr Administration Protocol 5 MCG/MIN Latanoprost 1 drop 01/23/25 21:00 Latanoprost 0.005% Op Soln 2.5 Ml Btl EACH EYE HS [facility] Morphine Sulfate 2 mg 01/22/25 20:32 Morphine Sulfate (*Crx) 2 Mg/Ml Inj IV PUSH Q2H PRN Pain Rated 7-10 Perflutren Lipid Microsphere 0 ml 01/23/25 15:32 Perflutren Lipid Microspheres 1.5 Ml Vial Diluted To 10 Ml Total Volume IV PUSH 01/26/25 15:32 ONCE PRN adequate visualization Protocol Sodium Chloride 10 ml 01/23/25 14:00 01/23/25 14:07 Central Line Flush IV PUSH 10 ml Q8HR SHANEKA Administration Sodium Chloride 10 ml 01/23/25 11:53 Central Line Flush IV PUSH PRN PRN with TPN bag changes Sodium Chloride 20 ml 01/23/25 11:53 Central Line Flush IV PUSH PRN PRN after blood draws Radiology Results: ITS Impressions Chest X-Ray 01/23/25 11:43 IMPRESSION: No focal infiltrate or effusion. Left upper extremity PICC line in good position and ready for immediate use. Labs Labs: Laboratory Results - last 24 hr 01/22/25 01/22/25 01/23/25 18:53 22:23 01:07 WBC 8.4 RBC 4.35 Hgb 12.7 Hct 39.1 MCV 89.9 MCH 29.2 MCHC 32.5 RDW 13.8 Plt Count 258 MPV 10.4 Immature Gran % (Auto) 0.4 Neut % (Auto) 43.5 L Lymph % (Auto) 44.3 H [place] % (Auto) 11.2 H Eos % (Auto) 0.4 Baso % (Auto) 0.2 Lymph # (Auto) 3.73 H [place] # (Auto) 0.9 H Eos # (Auto) 0.0 Baso # (Auto) 0.0 Abs Immat Gran (auto) 0.03 Absolute Neuts (auto) 3.7 Absolute Nucleated RBC 0.000 Nucleated RBC % 0.0 PT 13.7 INR 1.0 APTT 26.9 76.0 H Sodium 135 L Potassium 3.4 Chloride 102 Carbon Dioxide 27 Anion Gap 6 BUN 19 H Creatinine 1.05 H Estim Creat Clear Calc 31 Estimated GFR 50 L Glucose 114 H Lactic Acid Calcium 9.3 Magnesium Total Bilirubin 0.4 AST 31 ALT 15 Alkaline Phosphatase 52 Troponin I 0.022 1.580 H* D 1.880 H* NT-Pro-B Natriuret Pep Total Protein 8.1 Albumin 4.0 Triglycerides 270 H Cholesterol 166 LDL Cholesterol Direct 47 HDL Direct 60 Procalcitonin Blood Type AB Positive Antibody Screen Negative 01/23/25 01/23/25 01/23/25 03:59 07:15 11:34 WBC 9.3 RBC 4.15 L Hgb 12.3 Hct 38.2 MCV 92.0 MCH 29.6 MCHC 32.2 RDW 13.8 Plt Count 188 MPV 10.8 H Immature Gran % (Auto) 0.2 Neut % (Auto) 58.7 Lymph % (Auto) 29.9 [place] % (Auto) 10.8 H Eos % (Auto) 0.2 Baso % (Auto) 0.2 Lymph # (Auto) 2.79 [place] # (Auto) 1.0 H Eos # (Auto) 0.0 Baso # (Auto) 0.0 Abs Immat Gran (auto) 0.02 Absolute Neuts (auto) 5.5 Absolute Nucleated RBC 0.000 Nucleated RBC % 0.0 PT INR APTT 59.8 H Sodium 137 Potassium 3.8 Chloride 110 H Carbon Dioxide 21 L Anion Gap 6 BUN 16 Creatinine 0.84 Estim Creat Clear Calc 39 Estimated GFR > 60 Glucose 99 Lactic Acid 1.5 Calcium 8.9 Magnesium 2.1 Total Bilirubin AST ALT Alkaline Phosphatase Troponin I 2.010 H* 1.960 H* NT-Pro-B Natriuret Pep 3530 H Total Protein Albumin Triglycerides Cholesterol LDL Cholesterol Direct HDL Direct Procalcitonin < 0.0 Blood Type Antibody Screen 01/23/25 12:47 WBC RBC Hgb Hct MCV MCH MCHC RDW Plt Count MPV Immature Gran % (Auto) Neut % (Auto) Lymph % (Auto) [place] % (Auto) Eos % (Auto) Baso % (Auto) Lymph # (Auto) [place] # (Auto) Eos # (Auto) Baso # (Auto) Abs Immat Gran (auto) Absolute Neuts (auto) Absolute Nucleated RBC Nucleated RBC % PT INR APTT 79.7 H Sodium Potassium Chloride Carbon Dioxide Anion Gap BUN Creatinine Estim Creat Clear Calc Estimated GFR Glucose Lactic Acid Calcium Magnesium Total Bilirubin AST ALT Alkaline Phosphatase Troponin I NT-Pro-B Natriuret Pep Total Protein Albumin Triglycerides Cholesterol LDL Cholesterol Direct HDL Direct Procalcitonin Blood Type Antibody Screen
[2025-01-23] MEDS: PERFLUTREN LIPID MICROSPHERES 1.5 ML VIAL DILUTED TO 10 ML TOTAL VOLUME IV PUSH (16:30)
[2025-01-23 16:39] LABS: MRSA (PCR) NOT DETECTED (NOT DETECTE)
--- NOTE | 2025-01-23 16:42 | IVDEFINITY ---
Prior to administration of IV Definity the patient was educated on the risks and benefits of the imaging enhancing agent including potential adverse side effects. The patient verbalized understanding. Allergies were verified. No exclusion criteria were identified and at least one of the following inclusion criteria were met: 1) physician request, 2) patient technically difficult to image (per the [place] [employer] guidelines of two or more segments not discernable within the apical view), or 3) questionable left ventricular function. ?
[2025-01-23 17:16] LABS: Add Urine Microscopic? YES; Appearance Urine Clear (Clear); Glucose Urine UA Negative (Negative); Leukocyte Esterase Ur 1+ LEU/UL (Negative); Need Manual Microscopic Reviewed; Nitrate Urine Negative (Negative); Non Pathogenic Casts 0-2; Specific Grav Ur 1.023 (1.001-1.035)
[2025-01-23] MEDS: LATANOPROST 0.005% OP SOLN 2.5 ML BTL 1 DROP EACH EYE (20:26)
[2025-01-23 22:45] LABS: Partial Thromboplastin Time 45.5 Seconds (22.3-36.8)
[2025-01-24] VITALS (19 sets, daily range): BP systolic 82–145; BP diastolic 48–85; PULSE 56–87; RESP 12–23; TEMP 36.5–37.2; O2SAT 91–100
[2025-01-24 05:22] LABS: Hematocrit 34.0 % (37.0-47.0); Hemoglobin 11.0 g/dL (12.0-15.0); Mean Corpuscular HGB Conc 32.4 g/dl (32-36); Mean Corpuscular Hemoglobin 29.4 pg (26-34); Mean Corpuscular Volume 90.9 fl (80-100); Platelet Count Result 165 k/mm3 (150-375); Red Blood Count 3.74 M/mm3 (4.2-5.4); White Blood Count 8.2 K/mm3 (4.5-10.0)
[2025-01-24 05:40] LABS: Partial Thromboplastin Time 199.0 Seconds (22.3-36.8)
[2025-01-24 05:43] LABS: Alanine Aminotransferase 14 U/L (6-35); Albumin Level 3.0 g/dL (3.5-5.1); Alkaline Phosphatase 51 U/L (38-126); Anion Gap 3 mmol/L (4-12); Aspartate Amino Transferase 36 U/L (14-36); Bilirubin,Total 0.8 mg/dL (0.2-1.3); Blood Urea Nitrogen 10 mg/dL (7-17); Calcium 8.2 mg/dL (8.4-10.2); Carbon Dioxide 21 mmol/L (22-30); Chloride 109 mmol/L (98-107); Estimated CRCL calculation 41 ml/min; Estimated Glomerular Filt Rate > 60; Glucose 97 mg/dL (65-110); Magnesium 1.8 mg/dL (1.6-2.3); Potassium 3.4 mmol/L (3.4-5.0); Sodium 133 mmol/L (137-145); Total Protein 6.1 g/dL (6.3-8.2)
[2025-01-24] MEDS: CLOPIDOGREL BISULFATE 75 MG TABLET PO (08:26)
[2025-01-24] MEDS: BRIMONIDINE TARTRATE 0.2% OP SOLN 5 ML BTL 1 DROP EACH EYE ×2 (08:26→19:59)
[2025-01-24] MEDS: MAGNESIUM SULF 1 GM/D5W 100 ML 1 GM/100 ML BAG IVPB (08:27)
[2025-01-24] MEDS: POTASSIUM CHLORIDE 20 MEQ ER TABLET 40 MEQ PO ×2 (08:27→13:18)
[2025-01-24] MEDS: CENTRAL LINE FLUSH 10 ML IV PUSH ×3 (08:27→22:30)
[2025-01-24] MEDS: ASPIRIN 81 MG CHEWABLE TABLET PO (08:27)
--- NOTE | 2025-01-24 08:27 | WPDINTPN ---
Progress Note: A&P Assessment and Plan (1) Chest pain: Code(s): R07.9 - Chest pain, unspecified Status: Acute Assessment and Plan: Patient presented with chest pain with elevated troponin. 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 intern feels can explain her chest pain as NSTEMI Continue aspirin and atorvastatin Continue heparin drip at this time as per Cardiology Patient is on room air Echo ordered and pending, BNP 3 530 (2) Hypotension: Code(s): I95.9 - Hypotension, unspecified Status: Acute Assessment and Plan: Acute hypotension likely iatrogenic secondary to verapamil and nitroglycerin infusion LR bolus was given and patient now off of NS infusion Echo pending Levophed infusion weaned off Negative UA, normal procalcitonin, normal lactic acid level (3) NSTEMI (non-ST elevated myocardial infarction): Code(s): I21.4 - Non-ST elevation (NSTEMI) myocardial infarction Status: Acute Assessment and Plan: See above Plan DVT prophylaxis -heparin drip Nutrition -diet ordered Code Status - Full Code Incentive spirometry Replace low potassium Transfer out of ICU today Subjective Date/time seen: 01/24/25 Overnight events reviewed. Afebrile Levophed was weaned of yesterday She does not have any new complaints. Patient denies fever, chest pain, shortness of breath, cough, nausea vomiting, abdominal pain,, diarrhea, headache or constipation. All other systems were reviewed and negative Blood pressure was little soft when she was sleeping but did not required any vasopressors Good urine output. Tolerating p.o. diet. Other vitals acceptable Review of Systems Review of Systems: All systems reviewed & are unremarkable except as noted in HPI and below (HPI) Exam Narrative: General: Pt is alert awake and in NAD Lungs/Chest: Trachea central Clear BS B/L, few crackles on both bases Cardiac: RRR. Normal S1 S2. No murmurs Circulation: Bilateral dorsalis pedis Pedal pulses are intact and symmetrical. Feet are warm, radial pulse is palpable Abdomen: Normal bowel sounds.. Soft. NT. ND. Extremities: No clubbing, cyanosis or edema. Warm both hands have symmetrical color and cap refill, : Angela in place Neurologic: Follows commands. Moves all 4 extremities PERRL Skin: No Rash Objective Data Vital Signs Vital Signs: Vital Signs - 24 hr 01/23/25 10:15 01/23/25 10:18 01/23/25 10:43 Temperature 36.9 C Pulse Rate 45 L 42 L 45 L Pulse Rate [Right Radial Palpation] 45 L Respiratory Rate 14 14 17 Blood Pressure 79/46 L 93/54 L 97/54 L Pulse Oximetry 90 90 99 Oxygen Delivery Room Air Room Air 01/23/25 11:03 01/23/25 11:07 01/23/25 11:37 Temperature 36.9 C Pulse Rate 47 L 46 L 48 L Pulse Rate [Right Radial Palpation] 45 L 48 L Respiratory Rate 20 16 Blood Pressure 106/60 106/60 Pulse Oximetry 96 97 Oxygen Delivery 01/23/25 12:00 01/23/25 12:00 01/23/25 12:00 Temperature 36.8 C Pulse Rate 52 L 53 L Pulse Rate [Right Radial Palpation] Respiratory Rate 20 Blood Pressure 102/67 Pulse Oximetry 99 97 Oxygen Delivery Room Air 01/23/25 12:00 01/23/25 12:37 01/23/25 13:15 Temperature Pulse Rate 53 L 56 L 54 L Pulse Rate [Right Radial Palpation] 56 L Respiratory Rate 21 H Blood Pressure 102/67 115/55 L 120/64 Pulse Oximetry 99 Oxygen Delivery 01/23/25 13:30 01/23/25 13:37 01/23/25 13:45 Temperature Pulse Rate 58 L 58 L 56 L Pulse Rate [Right Radial Palpation] 58 L Respiratory Rate 19 Blood Pressure 131/69 131/69 106/60 Pulse Oximetry 97 Oxygen Delivery 01/23/25 14:00 01/23/25 14:00 01/23/25 14:00 Temperature Pulse Rate 73 73 73 Pulse Rate [Right Radial Palpation] Respiratory Rate 21 H Blood Pressure 107/67 107/67 Pulse Oximetry 96 Oxygen Delivery 01/23/25 14:37 01/23/25 15:37 01/23/25 16:00 Temperature Pulse Rate 47 L 51 L 56 L Pulse Rate [Right Radial Palpation] 47 L 51 L Respiratory Rate 16 17 Blood Pressure 110/69 98/57 L 96/60 L Pulse Oximetry 94 93 Oxygen Delivery 01/23/25 16:00 01/23/25 16:00 01/23/25 16:00 Temperature 36.8 C Pulse Rate 57 L 56 L Pulse Rate [Right Radial Palpation] Respiratory Rate 21 H Blood Pressure 104/61 Pulse Oximetry 93 94 Oxygen Delivery Room Air 01/23/25 18:00 01/23/25 18:00 01/23/25 18:00 Temperature Pulse Rate 61 60 60 Pulse Rate [Right Radial Palpation] Respiratory Rate 18 Blood Pressure 105/62 110/65 Pulse Oximetry 96 Oxygen Delivery 01/23/25 20:00 01/23/25 20:00 01/23/25 20:00 Temperature 37.4 C Pulse Rate 54 L 60 Pulse Rate [Right Radial Palpation] Respiratory Rate 18 Blood Pressure 93/56 L Pulse Oximetry 92 92 Oxygen Delivery Room Air 01/23/25 22:00 01/23/25 22:00 01/23/25 22:30 Temperature Pulse Rate 63 63 56 L Pulse Rate [Right Radial Palpation] Respiratory Rate 24 H 18 Blood Pressure 93/42 L 93/52 L Pulse Oximetry 94 93 Oxygen Delivery 01/23/25 23:00 01/23/25 23:30 01/24/25 00:00 Temperature 37.2 C Pulse Rate 58 L 63 58 L Pulse Rate [Right Radial Palpation] Respiratory Rate 22 H Blood Pressure 86/57 L 89/52 L 92/50 L Pulse Oximetry 91 Oxygen Delivery 01/24/25 00:00 01/24/25 00:00 01/24/25 00:30 Temperature Pulse Rate 57 L 68 Pulse Rate [Right Radial Palpation] Respiratory Rate Blood Pressure 86/62 L Pulse Oximetry 91 Oxygen Delivery Room Air 01/24/25 01:00 01/24/25 01:30 01/24/25 02:00 Temperature Pulse Rate 61 60 62 Pulse Rate [Right Radial Palpation] Respiratory Rate Blood Pressure 92/48 L 94/51 L 93/49 L Pulse Oximetry Oxygen Delivery 01/24/25 02:00 01/24/25 02:30 01/24/25 03:30 Temperature Pulse Rate 62 61 63 Pulse Rate [Right Radial Palpation] Respiratory Rate Blood Pressure 92/48 L 98/52 L Pulse Oximetry Oxygen Delivery 01/24/25 04:00 01/24/25 04:00 01/24/25 04:00 Temperature 36.9 C Pulse Rate 65 66 Pulse Rate [Right Radial Palpation] Respiratory Rate 23 H Blood Pressure 86/56 L Pulse Oximetry 94 94 Oxygen Delivery Room Air 01/24/25 04:30 01/24/25 05:00 01/24/25 05:30 Temperature Pulse Rate 59 L 60 57 L Pulse Rate [Right Radial Palpation] Respiratory Rate Blood Pressure 92/51 L 91/51 L 84/48 L Pulse Oximetry Oxygen Delivery 01/24/25 06:00 01/24/25 06:00 01/24/25 08:00 Temperature 37.1 C Pulse Rate 56 L 56 L 87 Pulse Rate [Right Radial Palpation] Respiratory Rate 15 Blood Pressure 87/56 L 116/80 Pulse Oximetry 100 Oxygen Delivery Intake/Output Intake/Output: Intake & Output 01/21/25 01/22/25 01/23/25 01/24/25 23:59 23:59 23:59 23:59 Intake Total 2666.4 355.1 Output Total 1300 400 Balance 1366.4 -44.9 Meds/Results Medications: Active Medications Generic Name Dose Route Start Last Admin Trade Name Freq PRN Reason Stop Dose Admin Aspirin 81 mg 01/23/25 08:00 01/23/25 08:12 Aspirin 81 Mg Chewable Tablet PO 81 mg DAILY@0800 [facility] Administration Brimonidine Tartrate 1 drop 01/23/25 09:00 01/23/25 20:27 Brimonidine Tartrate 0.2% Op Soln 5 Ml Btl EACH EYE 1 drop Q12H [facility] Administration Clopidogrel Bisulfate 75 mg 01/24/25 09:00 Clopidogrel Bisulfate 75 Mg Tablet PO QAM [facility] Heparin Sodium (Porcine) 4,000 units 01/22/25 19:00 01/23/25 23:31 Heparin Sodium 5,000 Units/Ml Vial IV PUSH 4,000 units PRN PRN Administration aPTT less than 55 seconds Heparin Sodium (Porcine) 2,500 units 01/22/25 19:00 Heparin Sodium 5,000 Units/Ml Vial IV PUSH PRN PRN aPTT 55 - 70 seconds Heparin Sodium/Dextrose 25,000 units in 250 mls @ 7 mls/hr 01/22/25 19:00 01/24/25 06:41 Heparin Sodium/D5w 100 Units/Ml IV CONT 700 units/hr .Q24H [facility] 7 mls/hr Titration Protocol 700 UNITS/HR Norepinephrine Bitartrate 8 mg in 250 mls @ 0 mls/hr 01/23/25 10:55 01/23/25 18:00 Levophed 8 Mg/D5w 250 Ml IV CONT 0 mcg/min .Q0M [facility] 0 mls/hr Titration Protocol 0 MCG/MIN Magnesium Sulfate/Dextrose 1 gm in 100 mls @ 100 mls/hr 01/24/25 08:09 Magnesium Sulf 1 Gm/D5w 100 Ml IVPB 01/24/25 09:08 ONCE ONE Latanoprost 1 drop 01/23/25 21:00 01/23/25 20:26 Latanoprost 0.005% Op Soln 2.5 Ml Btl EACH EYE 1 drop HS [facility] Administration Morphine Sulfate 2 mg 01/22/25 20:32 Morphine Sulfate (*Crx) 2 Mg/Ml Inj IV PUSH Q2H PRN Pain Rated 7-10 Potassium Chloride 40 meq 01/24/25 08:00 Potassium Chloride 20 Meq Er Tablet PO 01/24/25 14:01 Q6H [facility] Sodium Chloride 10 ml 01/23/25 14:00 01/23/25 22:00 Central Line Flush IV PUSH 10 ml Q8HR [facility] Administration Sodium Chloride 10 ml 01/23/25 11:53 Central Line Flush IV PUSH PRN PRN with TPN bag changes Sodium Chloride 20 ml 01/23/25 11:53 Central Line Flush IV PUSH PRN PRN after blood draws Radiology Results: ITS Impressions Chest X-Ray 01/23/25 11:43 IMPRESSION: No focal infiltrate or effusion. Left upper extremity PICC line in good position and ready for immediate use. Labs Labs: Laboratory Results - last 24 hr 01/23/25 01/23/25 01/23/25 11:34 12:47 15:10 WBC RBC Hgb Hct MCV MCH MCHC RDW Plt Count MPV APTT 79.7 H Sodium Potassium Chloride Carbon Dioxide Anion Gap BUN Creatinine Estim Creat Clear Calc Estimated GFR Glucose Lactic Acid 1.5 Calcium Magnesium Total Bilirubin AST ALT Alkaline Phosphatase NT-Pro-B Natriuret Pep 3530 H Total Protein Albumin Procalcitonin < 0.0 Urine Color Urine Appearance Urine pH Ur Specific [place] Urine Protein Urine Glucose (UA) Urine Ketones Ur Blood (Man) Urine Nitrate Urine Bilirubin Urine Urobilinogen Add Ur Microanalysis Leukocyte Esterase Rfl Urine RBC Urine WBC Ur Squamous Epith Cells Urine Bacteria Urine Casts Nasal MRSA (PCR) Not detected 01/23/25 01/23/25 01/24/25 16:56 21:59 05:17 WBC 8.2 RBC 3.74 L Hgb 11.0 L Hct 34.0 L MCV 90.9 MCH 29.4 MCHC 32.4 RDW 14.3 Plt Count 165 MPV 10.4 APTT 45.5 H 199.0 H* Sodium 133 L Potassium 3.4 Chloride 109 H Carbon Dioxide 21 L Anion Gap 3 L BUN 10 D Creatinine 0.78 Estim Creat Clear Calc 41 Estimated GFR > 60 Glucose 97 Lactic Acid Calcium 8.2 L Magnesium 1.8 Total Bilirubin 0.8 AST 36 ALT 14 Alkaline Phosphatase 51 NT-Pro-B Natriuret Pep Total Protein 6.1 L Albumin 3.0 L Procalcitonin Urine Color Yellow Urine Appearance Clear Urine pH 6.0 Ur Specific [place] 1.023 Urine Protein Negative Urine Glucose (UA) Negative Urine Ketones Negative Ur Blood (Man) Negative Urine Nitrate Negative Urine Bilirubin Negative Urine Urobilinogen 0.2 Add Ur Microanalysis Reviewed Leukocyte Esterase Rfl 1+ H Urine RBC 0-2 Urine WBC 0-5 Ur Squamous Epith Cells None seen Urine Bacteria None seen Urine Casts 0-2 Nasal MRSA (PCR) Quality VTE Prophylaxis VTE prophylaxis: pharmacologic ordered
[2025-01-24] MEDS: HEPARIN SOD/D5W 100 UNITS/ML 25,000 UNITS/250 ML BAG 7 UNITS IV CONT (12:39)
[2025-01-24 13:13] LABS: Partial Thromboplastin Time 54.6 Seconds (22.3-36.8)
--- NOTE | 2025-01-24 13:15 | P.PNIM_ITS ---
Progress Note: A&P Assessment and Plan (1) NSTEMI (non-ST elevated myocardial infarction): Code(s): I21.4 - Non-ST elevation (NSTEMI) myocardial infarction Status: Acute Assessment and Plan: Patient presented with chest pain with elevated troponin. Troponin peaked at 2.0. BNP 3530. 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 Continue aspirin and Plavix Continue heparin drip at this time as per Cardiology Cards recommended vasodilators for treatment. However unable to initiate due to hypotension Echo ordered and is pending (2) Hypotension: Code(s): I95.9 - Hypotension, unspecified Status: Acute Assessment and Plan: Acute hypotension causing a low flow state through the LAD LR bolus and NS infusion given and started on Levophed. Lactic 1.5. PCT 0. Echo ordered. LUE PICC line placed. Sepsis seems less likely. Weaned off Levophed but still having soft BP Monitor (3) Chest pain: Code(s): R07.9 - Chest pain, unspecified Status: Acute Assessment and Plan: As above Plan DVT prophylaxis -heparin drip Code Status - Full Code Subjective Date/time seen: 01/24/25 13:15 Interval history: 79yo female with glaucoma who presents with chest pain. Up to the chair. Off Levophed yesterday afternoon. Slept okay. [place] in the room. No CP or SOB. Eating okay Exam Narrative: AF 97.7 82/51 61 12 98% ra Gen - NARD Chest - lungs clear anteriorly. CV - RRR S1/S2. Tele showing sinus with arrythmia and bradycardia Abd - Soft, NT/ND, Positive BS Ext - No pedal edema Psych - Nml mood and affect Skin - Warm and dry Objective Data Vital Signs Vital Signs: Vital Signs - 24 hr 01/23/25 13:30 01/23/25 13:37 01/23/25 13:45 Temperature Pulse Rate 58 L 58 L 56 L Pulse Rate [Right Radial Palpation] 58 L Respiratory Rate 19 Blood Pressure 131/69 131/69 106/60 Pulse Oximetry 97 Oxygen Delivery 01/23/25 14:00 01/23/25 14:00 01/23/25 14:00 Temperature Pulse Rate 73 73 73 Pulse Rate [Right Radial Palpation] Respiratory Rate 21 H Blood Pressure 107/67 107/67 Pulse Oximetry 96 Oxygen Delivery 01/23/25 14:37 01/23/25 15:37 01/23/25 16:00 Temperature Pulse Rate 47 L 51 L 56 L Pulse Rate [Right Radial Palpation] 47 L 51 L Respiratory Rate 16 17 Blood Pressure 110/69 98/57 L 96/60 L Pulse Oximetry 94 93 Oxygen Delivery 01/23/25 16:00 01/23/25 16:00 01/23/25 16:00 Temperature 98.2 F Pulse Rate 57 L 56 L Pulse Rate [Right Radial Palpation] Respiratory Rate 21 H Blood Pressure 104/61 Pulse Oximetry 93 94 Oxygen Delivery Room Air 01/23/25 18:00 01/23/25 18:00 01/23/25 18:00 Temperature Pulse Rate 61 60 60 Pulse Rate [Right Radial Palpation] Respiratory Rate 18 Blood Pressure 105/62 110/65 Pulse Oximetry 96 Oxygen Delivery 01/23/25 20:00 01/23/25 20:00 01/23/25 20:00 Temperature 99.4 F Pulse Rate 54 L 60 Pulse Rate [Right Radial Palpation] Respiratory Rate 18 Blood Pressure 93/56 L Pulse Oximetry 92 92 Oxygen Delivery Room Air 01/23/25 22:00 01/23/25 22:00 01/23/25 22:30 Temperature Pulse Rate 63 63 56 L Pulse Rate [Right Radial Palpation] Respiratory Rate 24 H 18 Blood Pressure 93/42 L 93/52 L Pulse Oximetry 94 93 Oxygen Delivery 01/23/25 23:00 01/23/25 23:30 01/24/25 00:00 Temperature 98.9 F Pulse Rate 58 L 63 58 L Pulse Rate [Right Radial Palpation] Respiratory Rate 22 H Blood Pressure 86/57 L 89/52 L 92/50 L Pulse Oximetry 91 Oxygen Delivery 01/24/25 00:00 01/24/25 00:00 01/24/25 00:30 Temperature Pulse Rate 57 L 68 Pulse Rate [Right Radial Palpation] Respiratory Rate Blood Pressure 86/62 L Pulse Oximetry 91 Oxygen Delivery Room Air 01/24/25 01:00 01/24/25 01:30 01/24/25 02:00 Temperature Pulse Rate 61 60 62 Pulse Rate [Right Radial Palpation] Respiratory Rate Blood Pressure 92/48 L 94/51 L 93/49 L Pulse Oximetry Oxygen Delivery 01/24/25 02:00 01/24/25 02:30 01/24/25 03:30 Temperature Pulse Rate 62 61 63 Pulse Rate [Right Radial Palpation] Respiratory Rate Blood Pressure 92/48 L 98/52 L Pulse Oximetry Oxygen Delivery 01/24/25 04:00 01/24/25 04:00 01/24/25 04:00 Temperature 98.4 F Pulse Rate 65 66 Pulse Rate [Right Radial Palpation] Respiratory Rate 23 H Blood Pressure 86/56 L Pulse Oximetry 94 94 Oxygen Delivery Room Air 01/24/25 04:30 01/24/25 05:00 01/24/25 05:30 Temperature Pulse Rate 59 L 60 57 L Pulse Rate [Right Radial Palpation] Respiratory Rate Blood Pressure 92/51 L 91/51 L 84/48 L Pulse Oximetry Oxygen Delivery 01/24/25 06:00 01/24/25 06:00 01/24/25 08:00 Temperature 98.8 F Pulse Rate 56 L 56 L 87 Pulse Rate [Right Radial Palpation] Respiratory Rate 15 Blood Pressure 87/56 L 116/80 Pulse Oximetry 100 Oxygen Delivery 01/24/25 08:00 01/24/25 08:00 01/24/25 10:00 Temperature Pulse Rate 80 70 Pulse Rate [Right Radial Palpation] Respiratory Rate Blood Pressure Pulse Oximetry Oxygen Delivery Room Air 01/24/25 10:00 01/24/25 12:00 Temperature 97.7 F Pulse Rate 70 61 Pulse Rate [Right Radial Palpation] Respiratory Rate 19 12 Blood Pressure 94/66 L 82/51 L Pulse Oximetry 96 98 Oxygen Delivery Intake/Output Intake/Output: Intake & Output 01/21/25 01/22/25 01/23/25 01/24/25 23:59 23:59 23:59 23:59 Intake Total 2666.4 872.2 Output Total 1300 950 Balance 1366.4 -77.8 Meds/Results Medications: Active Medications Generic Name Dose Route Start Last Admin Trade Name Freq PRN Reason Stop Dose Admin Aspirin 81 mg 01/23/25 08:00 01/24/25 08:27 Aspirin 81 Mg Chewable Tablet PO 81 mg DAILY@0800 [facility] Administration Brimonidine Tartrate 1 drop 01/23/25 09:00 01/24/25 08:26 Brimonidine Tartrate 0.2% Op Soln 5 Ml Btl EACH EYE 1 drop Q12H [facility] Administration Clopidogrel Bisulfate 75 mg 01/24/25 09:00 01/24/25 08:26 Clopidogrel Bisulfate 75 Mg Tablet PO 75 mg QAM [facility] Administration Heparin Sodium (Porcine) 4,000 units 01/22/25 19:00 01/23/25 23:31 Heparin Sodium 5,000 Units/Ml Vial IV PUSH 4,000 units PRN PRN Administration aPTT less than 55 seconds Heparin Sodium (Porcine) 2,500 units 01/22/25 19:00 Heparin Sodium 5,000 Units/Ml Vial IV PUSH PRN PRN aPTT 55 - 70 seconds Heparin Sodium/Dextrose 25,000 units in 250 mls @ 7 mls/hr 01/22/25 19:00 01/24/25 12:39 Heparin Sodium/D5w 100 Units/Ml IV CONT 700 units/hr .Q24H [facility] 7 mls/hr Administration Protocol 700 UNITS/HR Norepinephrine Bitartrate 8 mg in 250 mls @ 0 mls/hr 01/23/25 10:55 01/23/25 18:00 Levophed 8 Mg/D5w 250 Ml IV CONT 0 mcg/min .Q0M [facility] 0 mls/hr Titration Protocol 0 MCG/MIN Latanoprost 1 drop 01/23/25 21:00 01/23/25 20:26 Latanoprost 0.005% Op Soln 2.5 Ml Btl EACH EYE 1 drop HS [facility] Administration Morphine Sulfate 2 mg 01/22/25 20:32 Morphine Sulfate (*Crx) 2 Mg/Ml Inj IV PUSH Q2H PRN Pain Rated 7-10 Potassium Chloride 40 meq 01/24/25 08:00 01/24/25 08:27 Potassium Chloride 20 Meq Er Tablet PO 01/24/25 14:01 40 meq Q6H [facility] Administration Sodium Chloride 10 ml 01/23/25 14:00 01/24/25 08:27 Central Line Flush IV PUSH 10 ml Q8HR [facility] Administration Sodium Chloride 10 ml 01/23/25 11:53 Central Line Flush IV PUSH PRN PRN with TPN bag changes Sodium Chloride 20 ml 01/23/25 11:53 Central Line Flush IV PUSH PRN PRN after blood draws Radiology Results: ITS Impressions Chest X-Ray 01/23/25 11:43 IMPRESSION: No focal infiltrate or effusion. Left upper extremity PICC line in good position and ready for immediate use. Labs Labs: Laboratory Results - last 24 hr 01/23/25 01/23/25 01/23/25 12:47 15:10 16:56 WBC RBC Hgb Hct MCV MCH MCHC RDW Plt Count MPV APTT 79.7 H Sodium Potassium Chloride Carbon Dioxide Anion Gap BUN Creatinine Estim Creat Clear Calc Estimated GFR Glucose Calcium Magnesium Total Bilirubin AST ALT Alkaline Phosphatase Total Protein Albumin Urine Color Yellow Urine Appearance Clear Urine pH 6.0 Ur Specific [place] 1.023 Urine Protein Negative Urine Glucose (UA) Negative Urine Ketones Negative Ur Blood (Man) Negative Urine Nitrate Negative Urine Bilirubin Negative Urine Urobilinogen 0.2 Add Ur Microanalysis Reviewed Leukocyte Esterase Rfl 1+ H Urine RBC 0-2 Urine WBC 0-5 Ur Squamous Epith Cells None seen Urine Bacteria None seen Urine Casts 0-2 Nasal MRSA (PCR) Not detected 01/23/25 01/24/25 01/24/25 21:59 05:17 12:33 WBC 8.2 RBC 3.74 L Hgb 11.0 L Hct 34.0 L MCV 90.9 MCH 29.4 MCHC 32.4 RDW 14.3 Plt Count 165 MPV 10.4 APTT 45.5 H 199.0 H* 54.6 H Sodium 133 L Potassium 3.4 Chloride 109 H Carbon Dioxide 21 L Anion Gap 3 L BUN 10 D Creatinine 0.78 Estim Creat Clear Calc 41 Estimated GFR > 60 Glucose 97 Calcium 8.2 L Magnesium 1.8 Total Bilirubin 0.8 AST 36 ALT 14 Alkaline Phosphatase 51 Total Protein 6.1 L Albumin 3.0 L Urine Color Urine Appearance Urine pH Ur Specific [place] Urine Protein Urine Glucose (UA) Urine Ketones Ur Blood (Man) Urine Nitrate Urine Bilirubin Urine Urobilinogen Add Ur Microanalysis Leukocyte Esterase Rfl Urine RBC Urine WBC Ur Squamous Epith Cells Urine Bacteria Urine Casts Nasal MRSA (PCR)
[2025-01-24] MEDS: SACUBITRIL/VALSARTAN 12-13 MG TABLET 1 TAB PO (19:59)
[2025-01-24] MEDS: LATANOPROST 0.005% OP SOLN 2.5 ML BTL 1 DROP EACH EYE (19:59)
[2025-01-25] VITALS (14 sets, daily range): BP systolic 102–142; BP diastolic 60–89; PULSE 60–101; RESP 18–22; TEMP 36.5–37.2; O2SAT 90–100
[2025-01-25 03:47] LABS: Hematocrit 37.1 % (37.0-47.0); Hemoglobin 12.1 g/dL (12.0-15.0); Mean Corpuscular HGB Conc 32.6 g/dl (32-36); Mean Corpuscular Hemoglobin 29.1 pg (26-34); Mean Corpuscular Volume 89.2 fl (80-100); Platelet Count Result 191 k/mm3 (150-375); Red Blood Count 4.16 M/mm3 (4.2-5.4); White Blood Count 8.7 K/mm3 (4.5-10.0)
[2025-01-25 04:22] LABS: Alanine Aminotransferase 18 U/L (6-35); Albumin Level 3.6 g/dL (3.5-5.1); Alkaline Phosphatase 63 U/L (38-126); Anion Gap 3 mmol/L (4-12); Aspartate Amino Transferase 45 U/L (14-36); Bilirubin,Total 0.8 mg/dL (0.2-1.3); Blood Urea Nitrogen 12 mg/dL (7-17); Calcium 8.9 mg/dL (8.4-10.2); Carbon Dioxide 23 mmol/L (22-30); Chloride 107 mmol/L (98-107); Estimated CRCL calculation 45 ml/min; Estimated Glomerular Filt Rate > 60; Glucose 100 mg/dL (65-110); Magnesium 2.2 mg/dL (1.6-2.3); Potassium 4.4 mmol/L (3.4-5.0); Sodium 133 mmol/L (137-145); Total Protein 7.1 g/dL (6.3-8.2)
[2025-01-25] MEDS: CENTRAL LINE FLUSH 10 ML IV PUSH ×3 (06:24→20:19)
[2025-01-25] MEDS: BRIMONIDINE TARTRATE 0.2% OP SOLN 5 ML BTL 1 DROP EACH EYE ×2 (08:42→20:19)
[2025-01-25] MEDS: CLOPIDOGREL BISULFATE 75 MG TABLET PO (08:42)
[2025-01-25] MEDS: SACUBITRIL/VALSARTAN 12-13 MG TABLET 1 TAB PO (08:42)
[2025-01-25] MEDS: ASPIRIN 81 MG CHEWABLE TABLET PO (08:42)
[2025-01-25] MEDS: ENOXAPARIN 40 MG/0.4 ML SYRINGE SUB-Q (08:43)
--- NOTE | 2025-01-25 11:01 | P.PNIM_ITS ---
Progress Note: A&P Assessment and Plan (1) NSTEMI (non-ST elevated myocardial infarction): Code(s): I21.4 - Non-ST elevation (NSTEMI) myocardial infarction Status: Acute Assessment and Plan: Patient presented with chest pain with elevated troponin. Troponin peaked at 2.0. BNP 3530. Cardiac catheterization showed nonobstructive coronary disease but low-flow in LAD which senior office assistant feels can explain her chest pain as NSTEMI CXR reviewed and showing no focal infiltrate or effusion Chest pain has resolved. Echo as mntioned below. Continue aspirin and Plavix Heparin drip stopped per Cardiology Cards recommended vasodilators for treatment. Continue aggressive medical management. (2) LV dysfunction: Code(s): I51.9 - Heart disease, unspecified Status: Acute Assessment and Plan: Echo showed EF 30-35% with Grade II diastolic dysfunction LV dysfunction related to above Aldactone and Entresto started LifeVest ordered. (3) Hypotension: Code(s): I95.9 - Hypotension, unspecified Status: Acute Assessment and Plan: Acute hypotension causing a low flow state through the LAD LR bolus and NS infusion given and started on Levophed. Lactic 1.5. PCT 0. Echo ordered. LUE PICC line placed. Sepsis seems less likely. Weaned off Levophed. Was having soft BP yesterday but better today and tolerating Aldactone and Entresto Monitor lv (4) Chest pain: Code(s): R07.9 - Chest pain, unspecified Status: Acute Assessment and Plan: As above Plan DVT prophylaxis -heparin drip Code Status - Full Code Subjective Date/time seen: 01/25/25 11:01 Interval history: 79yo female with glaucoma who presents with chest pain. Slept off and on. No CP or SOB. SOB resolved. No n/v. Exam Narrative: AF 97.7 142/79 101 18 90% ra Gen - NARD Chest - lungs clear anteriorly. CV - mildly tachy with occasional extra beat. Tele showing normal sinus rhythm with sinus arrhythmia Abd - Soft, NT/ND, Positive BS Ext - No pedal edema Psych - Nml mood and affect Skin - Warm and dry Objective Data Vital Signs Vital Signs: Vital Signs - 24 hr 01/24/25 12:00 01/24/25 12:00 01/24/25 12:00 Temperature 97.7 F Pulse Rate 61 59 L Respiratory Rate 12 Blood Pressure 82/51 L Pulse Oximetry 98 Oxygen Delivery Room Air 01/24/25 14:00 01/24/25 16:00 01/24/25 16:00 Temperature Pulse Rate 56 L 65 Respiratory Rate Blood Pressure Pulse Oximetry Oxygen Delivery Room Air 01/24/25 16:00 01/24/25 20:00 01/24/25 20:00 Temperature 98.0 F 99.0 F Pulse Rate 73 71 Respiratory Rate 18 18 Blood Pressure 145/85 H 114/78 Pulse Oximetry 96 97 Oxygen Delivery Room Air 01/24/25 20:00 01/24/25 22:00 01/25/25 00:00 Temperature 97.8 F Pulse Rate 70 64 61 Respiratory Rate 18 Blood Pressure 102/60 Pulse Oximetry 95 Oxygen Delivery 01/25/25 00:00 01/25/25 00:00 01/25/25 02:00 Temperature Pulse Rate 61 60 Respiratory Rate Blood Pressure Pulse Oximetry Oxygen Delivery Room Air 01/25/25 04:00 01/25/25 04:00 01/25/25 04:00 Temperature 98.9 F Pulse Rate 63 63 Respiratory Rate 18 Blood Pressure 130/68 Pulse Oximetry 99 Oxygen Delivery Room Air 01/25/25 06:00 01/25/25 07:34 01/25/25 08:00 Temperature 97.7 F Pulse Rate 66 80 82 Respiratory Rate 18 Blood Pressure 142/79 H Pulse Oximetry 90 Oxygen Delivery 01/25/25 08:00 01/25/25 10:00 Temperature Pulse Rate 101 H Respiratory Rate Blood Pressure Pulse Oximetry Oxygen Delivery Room Air Intake/Output Intake/Output: Intake & Output 01/22/25 01/23/25 01/24/25 01/25/25 23:59 23:59 23:59 23:59 Intake Total 2666.4 1356.9 460 Output Total 1999 366 9864 Balance 1366.4 406.9 -640 Meds/Results Medications: Active Medications Generic Name Dose Route Start Last Admin Trade Name Freq PRN Reason Stop Dose Admin Aspirin 81 mg 01/23/25 08:00 01/25/25 08:42 Aspirin 81 Mg Chewable Tablet PO 81 mg DAILY@0800 SHANEKA Administration Brimonidine Tartrate 1 drop 01/23/25 09:00 01/25/25 08:42 Brimonidine Tartrate 0.2% Op Soln 5 Ml Btl EACH EYE 1 drop Q12H SHANEKA Administration Clopidogrel Bisulfate 75 mg 01/24/25 09:00 01/25/25 08:42 Clopidogrel Bisulfate 75 Mg Tablet PO 75 mg QAM SHANEKA Administration Enoxaparin Sodium 40 mg 01/25/25 09:00 01/25/25 08:43 Enoxaparin 40 Mg/0.4 Ml Syringe SUB-Q 40 mg DAILY SHANEKA Administration Latanoprost 1 drop 01/23/25 21:00 01/24/25 19:59 Latanoprost 0.005% Op Soln 2.5 Ml Btl EACH EYE 1 drop HS SHANEKA Administration Morphine Sulfate 2 mg 01/22/25 20:32 Morphine Sulfate (*Crx) 2 Mg/Ml Inj IV PUSH Q2H PRN Pain Rated 7-10 Sacubitril/Valsartan 1 tab 01/24/25 21:00 01/25/25 08:42 Sacubitril/Valsartan 12-13 Mg Tablet PO 1 tab Q12HR SHANEKA Administration Sodium Chloride 10 ml 01/23/25 14:00 01/25/25 06:24 Central Line Flush IV PUSH 10 ml Q8HR SHANEKA Administration Sodium Chloride 10 ml 01/23/25 11:53 Central Line Flush IV PUSH PRN PRN with TPN bag changes Sodium Chloride 20 ml 01/23/25 11:53 Central Line Flush IV PUSH PRN PRN after blood draws Spironolactone 12.5 mg 01/24/25 13:30 01/24/25 14:29 Spironolactone 12.5 Mg Tablet PO 12.5 mg QAM SHANEKA Administration Radiology Results: ITS Impressions Chest X-Ray 01/23/25 11:43 IMPRESSION: No focal infiltrate or effusion. Left upper extremity PICC line in good position and ready for immediate use. Labs Labs: Laboratory Results - last 24 hr 01/24/25 01/25/25 12:33 03:40 WBC 8.7 RBC 4.16 L Hgb 12.1 Hct 37.1 MCV 89.2 MCH 29.1 MCHC 32.6 RDW 14.3 Plt Count 191 MPV 10.6 H APTT 54.6 H Sodium 133 L Potassium 4.4 Chloride 107 Carbon Dioxide 23 Anion Gap 3 L BUN 12 Creatinine 0.82 Estim Creat Clear Calc 45 Estimated GFR > 60 Glucose 100 Calcium 8.9 Magnesium 2.2 Total Bilirubin 0.8 AST 45 H ALT 18 Alkaline Phosphatase 63 Total Protein 7.1 Albumin 3.6
--- NOTE | 2025-01-25 12:23 | PM.PNCARD ---
Progress Note: A&P Assessment and Plan (1) LV dysfunction: Code(s): I51.9 - Heart disease, unspecified Status: Acute Plan Nonischemic cardiomyopathy, Ejection fraction 30%, Possible stress-induced myopathy Nonobstructive coronary artery disease with slow flow Plan Aspirin 81 mg daily Entresto increase the dose to 1 tablet p.o. b.i.d. Aldactone 25 mg daily If blood pressure is stable tomorrow consider adding metoprolol XL 25 mg daily LifeVest on discharge Subjective Date/time seen: 01/25/25 12:23 Interval history: No acute events Telemetry sinus rhythm Review of Systems Review of Systems: All systems reviewed & are unremarkable except as noted in HPI and below Exam Narrative: General: Alert oriented x3, no acute distress Neck: Supple, no JVD Chest: Bilaterally clear to auscultation, no rales or rhonchi Cardiac: S1, S2 +, regular rate, regular rhythm, no murmurs or rubs Extremities: No pedal edema, no skin rash Neurologic: Alert and oriented x3, no focal neurological deficits Objective Data Vital Signs Vital Signs: Vital Signs - 24 hr 01/24/25 14:00 01/24/25 16:00 01/24/25 16:00 Temperature Pulse Rate 56 L 65 Respiratory Rate Blood Pressure Pulse Oximetry Oxygen Delivery Room Air 01/24/25 16:00 01/24/25 20:00 01/24/25 20:00 Temperature 36.7 C 37.2 C Pulse Rate 73 71 Respiratory Rate 18 18 Blood Pressure 145/85 H 114/78 Pulse Oximetry 96 97 Oxygen Delivery Room Air 01/24/25 20:00 01/24/25 22:00 01/25/25 00:00 Temperature 36.6 C Pulse Rate 70 64 61 Respiratory Rate 18 Blood Pressure 102/60 Pulse Oximetry 95 Oxygen Delivery 01/25/25 00:00 01/25/25 00:00 01/25/25 02:00 Temperature Pulse Rate 61 60 Respiratory Rate Blood Pressure Pulse Oximetry Oxygen Delivery Room Air 01/25/25 04:00 01/25/25 04:00 01/25/25 04:00 Temperature 37.2 C Pulse Rate 63 63 Respiratory Rate 18 Blood Pressure 130/68 Pulse Oximetry 99 Oxygen Delivery Room Air 01/25/25 06:00 01/25/25 07:34 01/25/25 08:00 Temperature 36.5 C Pulse Rate 66 80 82 Respiratory Rate 18 Blood Pressure 142/79 H Pulse Oximetry 90 Oxygen Delivery 01/25/25 08:00 01/25/25 10:00 Temperature Pulse Rate 101 H Respiratory Rate Blood Pressure Pulse Oximetry Oxygen Delivery Room Air Intake/Output Intake/Output: Intake & Output 01/22/25 01/23/25 01/24/25 01/25/25 23:59 23:59 23:59 23:59 Intake Total 2666.4 1356.9 460 Output Total 0350 914 1865 Balance 1366.4 406.9 -640 Meds/Results Medications: Active Medications Generic Name Dose Route Start Last Admin Trade Name Freq PRN Reason Stop Dose Admin Aspirin 81 mg 01/23/25 08:00 01/25/25 08:42 Aspirin 81 Mg Chewable Tablet PO 81 mg DAILY@0800 SHANEKA Administration Brimonidine Tartrate 1 drop 01/23/25 09:00 01/25/25 08:42 Brimonidine Tartrate 0.2% Op Soln 5 Ml Btl EACH EYE 1 drop Q12H SHANEKA Administration Clopidogrel Bisulfate 75 mg 01/24/25 09:00 01/25/25 08:42 Clopidogrel Bisulfate 75 Mg Tablet PO 75 mg QAM SHANEKA Administration Enoxaparin Sodium 40 mg 01/25/25 09:00 01/25/25 08:43 Enoxaparin 40 Mg/0.4 Ml Syringe SUB-Q 40 mg DAILY SHANEKA Administration Latanoprost 1 drop 01/23/25 21:00 01/24/25 19:59 Latanoprost 0.005% Op Soln 2.5 Ml Btl EACH EYE 1 drop HS SHANEKA Administration Morphine Sulfate 2 mg 01/22/25 20:32 Morphine Sulfate (*Crx) 2 Mg/Ml Inj IV PUSH Q2H PRN Pain Rated 7-10 Sacubitril/Valsartan 1 tab 01/24/25 21:00 01/25/25 08:42 Sacubitril/Valsartan 12-13 Mg Tablet PO 1 tab Q12HR SHANEKA Administration Sodium Chloride 10 ml 01/23/25 14:00 01/25/25 06:24 Central Line Flush IV PUSH 10 ml Q8HR SHANEKA Administration Sodium Chloride 10 ml 01/23/25 11:53 Central Line Flush IV PUSH PRN PRN with TPN bag changes Sodium Chloride 20 ml 01/23/25 11:53 Central Line Flush IV PUSH PRN PRN after blood draws Spironolactone 12.5 mg 01/24/25 13:30 01/25/25 11:12 Spironolactone 12.5 Mg Tablet PO 12.5 mg QAM SHANEKA Administration Radiology Results: ITS Impressions Chest X-Ray 01/23/25 11:43 IMPRESSION: No focal infiltrate or effusion. Left upper extremity PICC line in good position and ready for immediate use. Labs Labs: Laboratory Results - last 24 hr 01/24/25 01/25/25 12:33 03:40 WBC 8.7 RBC 4.16 L Hgb 12.1 Hct 37.1 MCV 89.2 MCH 29.1 MCHC 32.6 RDW 14.3 Plt Count 191 MPV 10.6 H APTT 54.6 H Sodium 133 L Potassium 4.4 Chloride 107 Carbon Dioxide 23 Anion Gap 3 L BUN 12 Creatinine 0.82 Estim Creat Clear Calc 45 Estimated GFR > 60 Glucose 100 Calcium 8.9 Magnesium 2.2 Total Bilirubin 0.8 AST 45 H ALT 18 Alkaline Phosphatase 63 Total Protein 7.1 Albumin 3.6
[2025-01-25] MEDS: LATANOPROST 0.005% OP SOLN 2.5 ML BTL 1 DROP EACH EYE (20:19)
[2025-01-25] MEDS: SACUBITRIL/VALSARTAN 24-26 MG TABLET 1 TAB PO (20:19)
[2025-01-26] VITALS (7 sets, daily range): BP systolic 107–145; BP diastolic 55–93; PULSE 57–95; RESP 16–20; TEMP 36.6–36.9; O2SAT 95–99
[2025-01-26] MEDS: CENTRAL LINE FLUSH 10 ML IV PUSH (05:17)
[2025-01-26 05:36] LABS: Hematocrit 36.4 % (37.0-47.0); Hemoglobin 11.6 g/dL (12.0-15.0); Mean Corpuscular HGB Conc 31.9 g/dl (32-36); Mean Corpuscular Hemoglobin 28.9 pg (26-34); Mean Corpuscular Volume 90.5 fl (80-100); Platelet Count Result 179 k/mm3 (150-375); Red Blood Count 4.02 M/mm3 (4.2-5.4); White Blood Count 7.8 K/mm3 (4.5-10.0)
[2025-01-26 06:06] LABS: Alanine Aminotransferase 16 U/L (6-35); Albumin Level 3.2 g/dL (3.5-5.1); Alkaline Phosphatase 56 U/L (38-126); Anion Gap 6 mmol/L (4-12); Aspartate Amino Transferase 31 U/L (14-36); Bilirubin,Total 0.9 mg/dL (0.2-1.3); Blood Urea Nitrogen 11 mg/dL (7-17); Calcium 8.8 mg/dL (8.4-10.2); Carbon Dioxide 23 mmol/L (22-30); Chloride 109 mmol/L (98-107); Estimated CRCL calculation 45 ml/min; Estimated Glomerular Filt Rate > 60; Glucose 100 mg/dL (65-110); Magnesium 2.0 mg/dL (1.6-2.3); Potassium 3.7 mmol/L (3.4-5.0); Sodium 138 mmol/L (137-145); Total Protein 6.4 g/dL (6.3-8.2)
[2025-01-26] MEDS: SACUBITRIL/VALSARTAN 24-26 MG TABLET 1 TAB PO (07:59)
[2025-01-26] MEDS: ASPIRIN 81 MG CHEWABLE TABLET PO (07:59)
[2025-01-26] MEDS: BRIMONIDINE TARTRATE 0.2% OP SOLN 5 ML BTL 1 DROP EACH EYE (08:00)
[2025-01-26] MEDS: ENOXAPARIN 40 MG/0.4 ML SYRINGE SUB-Q (08:00)
--- NOTE | 2025-01-26 12:41 | P.DS_ITS ---
DS: Admitting Diagnosis Discharge Date 01/26/25 Admitting Diagnosis Chest pain DS: Discharge Diagnosis Discharge Diagnosis (1) NSTEMI (non-ST elevated myocardial infarction): Code(s): I21.4 - Non-ST elevation (NSTEMI) myocardial infarction Status: Acute (2) LV dysfunction: Code(s): I51.9 - Heart disease, unspecified Status: Acute (3) Hypotension: Code(s): I95.9 - Hypotension, unspecified Status: Acute (4) Chest pain: Code(s): R07.9 - Chest pain, unspecified Status: Acute DS: Summary Hospital Course Reason for hospitalization: 79yo female with glaucoma who presents with chest pain. Please see H&P for details. Hospital Course: Patient presented with chest pain and found to have elevated troponin. Troponin peaked at 2.0. BNP 3530. Heparin drip started. Cardiac catheterization showed nonobstructive coronary disease but slow-flow in the entire LAD more so in the proximal vessel with contrast clearing in 6-7 beats. Flow is improved with intracoronary nitroglycerin. Contrast swirling is also noted in coronary sinuses which clears in 5-6 beats. No evidence of thrombus. Her coronary perfusion pressure (DBP-LVEDP) is low which could explain slow flow. Her SBP at that time was ranging 70s to 80s secondary to sedation, verapamil administered in radial sheath for radial artery spasm, intracoronary nitroglycerin. CXR showing no focal infiltrate or effusion. Echo showed EF 30-35% with Grade II diastolic dysfunction. She was continued on the heparin drip. Chest pain has resolved. Post procedure, she continued to have hypotension. She had LR bolus and NS infusion given and started on Levophed. She was moved to the ICU. Lactic 1.5. PCT 0. BP improved. She was able to be weaned off Levophed. BP remained stable and she was able to tolerate Aldactone and Entresto. LifeVest ordered and to be placed today. Discharge instructions discussed in detail. Side effects of medications discussed. All questions answered. She overall did well and was able to be discharged home on 01/26/2025 Status at Discharge Cognitive/behavioral status at discharge: stable Time Spent with Patient Time attestation: Total time spent providing and/or coordinating discharge services: 34 minutes Time spent: Greater than 30 minutes Exam Narrative: AF 98.5 132/75 89 18 98% ra Gen - NARD Chest - lungs clear anteriorly. CV - RRR S1/S2 Abd - Soft, NT/ND, Positive BS Ext - No pedal edema Psych - Nml mood and affect Skin - Warm and dry DS: Data Data Completed and Pending Labs on day of discharge: Labs from last 24 hours 01/26/25 05:08 WBC 7.8 RBC 4.02 L Hgb 11.6 L Hct 36.4 L MCV 90.5 MCH 28.9 MCHC 31.9 L RDW 14.2 Plt Count 179 MPV 10.9 H Sodium 138 Potassium 3.7 Chloride 109 H Carbon Dioxide 23 Anion Gap 6 BUN 11 Creatinine 0.83 Estim Creat Clear Calc 45 Estimated GFR > 60 Glucose 100 Calcium 8.8 Magnesium 2.0 Total Bilirubin 0.9 AST 31 ALT 16 Alkaline Phosphatase 56 Total Protein 6.4 Albumin 3.2 L Discharge Plan Discharge Attending physician on discharge: Leonard Ferrari Consulting providers: Сергей Webster Discharging Clinician: Leonard Ferrari Anticipated Discharge Date/Time: 01/26/25 12:57 Patient Disposition: Home Activity: other - see discharge instructions Diet: heart healthy Discharge Instructions: [facility] [address] [place] [address] DISCHARGE INSTRUCTIONS - POST CARDIAC CATH Activity Restriction 1. No Driving for 24 hours 2. No lifting, pushing or pulling more than 10 LBS for 1 week 3. No strenuous activity or exercising for 1 week 4. Shower after 24 hours, do not soak in any water such as hot tubs or bath tubs Wound Care 1. Remove dressing 24 hours after your procedure prior to showering 2. Lather soap and water to puncture site and rinse then pat dry 3. You may apply a new band aid to the site and remove aft er 24 hours then leave open to air 4. Monitor daily for redness, drainage, mild swelling and fever Report IMMEDIATELY: CALL 911 1. If you experience any swelling or bleeding from puncture site. Hold firm pressure over the puncture site until help arrives 2. If you experience any new discomfort in you back, neck, jaw, stomach or arm. Any shortness of breath, nausea, vo miting, or cold sweats 3. If you experience any swelling, tenderness, or numbness in your leg or if your leg becomes cold or has color changes. Follow Up 1. Follow your doctors discharge instructions on resuming your medications. Some medications will need to be held after your procedure 2. Follow up with the office to schedule your next appointment with your doctor 3. Drink plenty of water following your procedure, avoid alcohol If you received a stent or a closure device keep your card with you such as in your wallet. Present your card to your doctor appointments to update your health care information. *For any other questions please call the office at [phone]. Office hours are 8AM 4:30PM Sunday through Sunday. Wear LifeVest as instructed. Okay to remove for hygiene. Take precautions to avoid falls. Rise slowly from a lying or sitting position. Pause before standing or walking. Contact your doctor or call 911 and come to the Emergency Room if you have chest pain, lightheadedness with standing or other worrisome symptoms. Avoid NSAIDs (ibuprofen, naproxen, Aleve). Tylenol is safe to take. Follow-up with your primary care provider in 1-2 weeks. Please call for appointment. Follow-up with Cardiology in 2-3 weeks. Please call for an appointment. Thank you for using [facility] for your health care needs. Patient Instructions: Antibiotic Form, Sacubitril/Valsartan (By mouth), Wearable Cardioverter Defibrillator (GEN), PICC (Peripherally Inserted Central Catheter) (GEN) Patient Language: Albanian Stand Alone Forms: General Discharge Information Follow-up/Referrals: Glynn Robert MD [Primary Care Provider] - Call for Appointment Maddie Palma MD [Physician] - Call for Appointment Discharge Medications: New aspirin [Children's Aspirin] 81 mg Tablet,Chewable 81 mg PO DAILY@0800 Qty: 30 0RF spironolactone 25 mg tablet 12.5 mg PO DAILY Qty: 15 1RF Entresto 24-26 mg Tablet 1 tab PO Q12HR Qty: 60 1RF spironolactone 25 mg tablet 12.5 mg PO DAILY Qty: 15 1RF metoprolol succinate [Toprol XL] 25 mg tablet extended release 24 hr 12.5 mg PO DAILY Qty: 15 1RF Continued latanoprost 0.005 % drops 1 drp EACH EYE HS dorzolamide-timolol 22.3-6.8 mg/mL drops 1 drp ophthalmic (eye) ONCE brimonidine 0.2 % drops 1 drp EACH EYE Q12H cholecalciferol (vitamin D3) 50 mcg (2,000 unit) capsule 2,000 unit PO DAILY Date of admission: 01/22/25 20:36 Primary Care Provider: Glynn Robert Admitting Provider: Amber Cavazos Attending physician on admission: Amber Cavazos Condition: Stable Hospitalist MIPS Heart Failure (Exclusion) Patient has history of Heart Transplant or Left Ventricular Assistive Device?: No IF YES, STOP HERE Heart Failure (Qualifier) Patient has current or prior documentation of LVEF less than or equal to 40%, or mod/servere depressed LVSF?: Yes IF NO, STOP HERE If Yes, Heart Failure (Qualifier) Patient was prescribed or already taking an Angiotensin-Converting Enzyme (CARROL) Inhibitor, or Antiotensin Receptor Pau (ARB): Yes Patient was prescribed or already taking bisoprolol, carvedilol, or sustained release metoprolol succinate: Yes
--- NOTE | 2025-01-29 09:49 | PC.NURSE ---
Dr. Ferrari viewed urine cx results. Ordered Keflex 500 mg by mouth every 12 hours for 5 days. Spoke to patient regarding order. States agreement and understanding regarding medication. Called into [facility].
== END 2025-01-26 14:48 | disposition home or self-care (01) | DRG 280 ==
LOC: ANHED 19:23 → ANHIMU 21:26 → ANHICU 01-23 11:19 → ANHIMU 01-27 16:29
PROVIDERS: Internal Medicine; Internal Medicine Interventional Cardiology; Admitting Provider General Practice; Emergency Provider Emergency Medicine; PCP Family Medicine; Visit Provider Internal Medicine
PROC: 4A023N7 Measurement of Cardiac Sampling and Pressure, Left Heart, Percutaneous Approach (ICD-10-PCS; CPT 93452; principal; 2025-01-23 08:30)
DX: I51.81 Takotsubo syndrome (principal); I50.23 Acute on chronic systolic (congestive) heart failure; I21.A1 Myocardial infarction type 2; I25.10 Atherosclerotic heart disease of native coronary artery without angina pectoris; I95.89 Other hypotension; T46.1X5A Adverse effect of calcium-channel blockers, initial encounter; T46.3X5A Adverse effect of coronary vasodilators, initial encounter; H40.9 Unspecified glaucoma; F17.210 Nicotine dependence, cigarettes, uncomplicated; Z96.653 Presence of artificial knee joint, bilateral
CPT/HCPCS: 36415; 36569; 71045; 80048; 80053; 80061; 81001; 83605; 83735; 83880; 84145; 84484; 85025; 85027; 85610; 85730; 86850; 86900; 86901; 87086; 87641; 93005; 93458; 99285; A9270; C1751; C1769; C1887; C1894; C8929; J1644; J1650; J2003; J2250; J2305; J2371; J3010; J3475; J7030; J7040; J7060; J7120; Q9957

== ENCOUNTER 2025-06-22 12:30 | Outpatient (RCR) | payer MEDICARE, BC, SELFPAY | END 2025-06-24 15:26 | disposition home or self-care (01) | LOC: ANHCPREHAB 12:30 | PROVIDERS: PCP Family Medicine; Visit Provider Internal Medicine | DX: I50.89 Other heart failure (principal) | CPT/HCPCS: 93798 ==